=== PATIENT | male | born 1975 | race Caucasian/White ===

== ENCOUNTER 2019-01-07 20:27 | Inpatient (IN) ==
[2019-01-07] MEDS ORDERED: Naloxone Inj 2 MG/2 ML Vial ONE (20:53)
[2019-01-07] MEDS ORDERED: Sod Chloride 0.9% Inj 1,000 ML IV.SIG ONE (20:57)
[2019-01-07 21:25] LABS: Baso # (Auto) 0.1 th/mm3 (0.0-0.2); Baso % (Auto) 0.4 % (0.0-2.0); Eos # (Auto) 0.1 th/mm3 (0.0-0.4); Hematocrit 46.4 % (39.0-51.0); Hemoglobin 15.6 gm/dL (13.0-17.0); Lymph # (Auto) 1.9 th/mm3 (1.0-4.8); Lymph % (Auto) 15.1 % (9.0-44.0); Mean Corpuscular HGB Conc 33.6 % (32.0-36.0); Mean Corpuscular Hemoglobin 30.1 pg (27.0-34.0); Mean Corpuscular Volume 89.6 fL (80.0-100.0); Mean Platelet Volume 8.8 fL (7.0-11.0); Mono # (Auto) 0.5 th/mm3 (0.0-0.9); Mono % (Auto) 3.9 % (0.0-8.0); Neut # (Auto) 10.2 th/mm3 (1.8-7.7); Neut % (Auto) 79.6 % (16.0-70.0); Platelet Count 274 th/mm3 (150-450); Red Blood Count 5.18 mil/mm3 (4.50-5.90); Red Cell Distribution Width 14.8 % (11.6-17.2); White Blood Count 12.8 th/mm3 (4.0-11.0)
[2019-01-07 21:34] LABS: Prothrombin Time 9.8 sec (9.8-11.6)
[2019-01-07 21:36] LABS: Amphetamine Screen,Urine Neg (Neg); Barbiturate Screen,Urine Neg (Neg); Cannabinoid Screen,Urine Neg (Neg); Cocaine Screen,Urine Neg (Neg)
[2019-01-07 21:37] LABS: Bacteria,Urine Few /hpf; Bilirubin,Urine Negative (Negative); Clarity,Urine Clear (Clear); Color,Urine Straw (Yellw/Straw); Glucose,Urine (UA) 500 or Greater mg/dL (Negative); Leukocyte Esterase,Urine Negative (Negative); Nitrite,Urine Negative (Negative); Squamous Epithelial Cell,Urine <1 /hpf (0-5)
--- NOTE | 2019-01-07 21:37 | XR ---
EXAM DATE: 01/07/2019 9:30 PM EST AGE/SEX: 43 years / Male INDICATIONS: Cough, found unresponsive. CLINICAL DATA: This is the patient's initial encounter. Patient reports that signs and symptoms have been present for 1 day and indicates a pain score of Nonresponsive. MEDICAL/SURGICAL HISTORY: Non-responsive. Non-responsive. COMPARISON: No prior exams available for comparison. FINDINGS: Single AP view of the chest. The lungs are clear. Cardiomediastinal silhouette within norm al limits. No evidence of pleural effusion or pneumothorax. CONCLUSION: No acute cardiopulmonary disease identified. Electronically signed by: Luis Weinberg MD Board Certified Radiologist 01/07/2019 9:36 PM EST
[2019-01-07 21:44] LABS: Opiate Screen,Urine Neg (Neg)
--- NOTE | 2019-01-07 21:45 | ED ---
HPI General Chief Complaint: Altered Mental Status Stated Complaint: Confusion Time Seen by Provider: 01/07/19 20:50 Source: patient, family and EMS Mode of arrival: EMS Limitations: no limitations History of Present Illness HPI narrative: 43 year old male presents to ED by EVAC for altered mental status. Per EVAC, pt was alert upon their arrival but began to deteriorate en route. EVAC states that the patient was walking and stumbling into the [place] and urinating on himself, which is not normal for him. Upon arrival pt was difficult to arouse and required several sternal rubs. He was severely altered, with slurred speech and unable to answer questions appropriately. Family states that he has a history of schizophrenia and diabetes. Blood sugar was in 400s. Family states that he has episodes of psychosis but this is not his normal presentation of schizophrenia symptoms. Family states that the patient manages his own medications and as far as they know, he has been taking his medications. Related Data Home Medications Medication Instructions Recorded Confirmed haloperidol decanoate 150 mg IM Q4W 01/08/19 01/08/19 hydroxyzine pamoate 50 mg PO HS 01/08/19 01/08/19 mirtazapine 30 mg PO HS 01/08/19 01/08/19 perphenazine 4 mg PO DAILY 01/08/19 01/08/19 perphenazine 8 mg PO HS 01/08/19 01/08/19 Allergies Allergy/AdvReac Type Severity Reaction Status Date / Time iodine Allergy Severe RASH Unverified 07/11/17 19:24 lidocaine Allergy Severe UNKNOWN Unverified 07/11/17 19:24 penicillin G Allergy Severe Unverified 07/11/17 19:24 prednisone Allergy Severe UNKNOWN Unverified 07/11/17 19:24 sodium iodide Allergy Severe RASH Unverified 07/11/17 19:24 sodium iodide Allergy Severe RASH Unverified 07/11/17 19:24 Review of Systems ROS: all other systems reviewed are negative [facility] Social History Social History Second Hand Smoke Exposure: No Smoking Status: Never smoker How Often Do You Have a Drink Containing Alcohol: Never Recent Travel in [facility] within the Last 8 Weeks: No Recent Out of Country Travel within the Last 8 Weeks: No Immunization History Tetanus Immunization: <5 Years Exam Narrative Exam Narrative: GENERAL: Altered. SKIN: Focused skin assessment warm/dry. HEAD: Atraumatic. Normocephalic. EYES: Pupils equal and round. No scleral icterus. No injection or drainage. ENT: No nasal bleeding or discharge. Mucous membranes pink and moist. Tongue is midline. No uvula deviation. NECK: Trachea midline. No JVD. CARDIOVASCULAR: Regular rate and rhythm. No murmur appreciated. RESPIRATORY: No accessory muscle use. Clear to auscultation. Breath sounds equal bilaterally. GASTROINTESTINAL: Abdomen soft, non-tender, nondistended. Hepatic and splenic margins not palpable. MUSCULOSKELETAL: No obvious deformities. No clubbing. No cyanosis. No edema. Full range of motion of the upper and lower extremities bilaterally. 2+ pulses bilaterally. NEUROLOGICAL: Awake and alert. No obvious cranial nerve deficits. Motor grossly within normal limits. Normal speech. PSYCHIATRIC: Altered mood and affect; insight and judgment not present at this time. Course Initial Documented Vital Signs Temperature 97.9 F 01/07/19 21:15 Pulse Rate 91 H 01/07/19 21:15 Respiratory Rate 16 01/07/19 21:15 Blood Pressure 165/85 H 01/07/19 21:15 Pulse Oximetry 98 01/07/19 21:15 Last Documented Vital Signs Temperature 98.7 F 01/09/19 16:00 Pulse Rate 101 H 01/09/19 18:00 Respiratory Rate 16 01/09/19 16:00 Blood Pressure 131/82 01/09/19 16:00 Pulse Oximetry 96 01/09/19 16:00 Medical Decision Making DALE Attestation DALE supervised visit: Yes Attestation: I, Dr. Ibarra, have reviewed the advance practice practitioner's documentation and am in agreement, met with the patient face to face, made the diagnosis, and the medical decision making was done by me. *My assessment and Findings: Psychosis vs. drug use vs. DKA vs. ICH vs. electrolyte abnormality Pt has a psych history and was given narcan by EVAC which did not really help. He woke up with deep sternal rub by me. Labs reviewed, mild leukocytosis. H/H normal. Glucose elevated. Normal CO2. Normal anion gap. CXR negative. CT brain negative. Pt will be admitted for AMS. MDM Narrative Medical decision making narrative: 43-year-old male that presents to the ED for evaluation of altered mental status. Patient was properly examined and was found to have signs and symptoms consistent appears to be altered mental status. Labs and imaging were ordered. Labs and imaging showed no obvious sign of acute disease. Patient is hyperglycemic but otherwise unremarkable. Unclear as to the etiology of the patient's symptoms. No history of this in the past per family and it is unclear as to what is causing the symptoms. There is a potential for this to be psychiatric in nature but cannot completely rule out medical cause. At this time recommendations for admission. My attending Dr. Ibarra herself evaluated the patient and agrees with this plan. Case discussed with Dr Granda who agrees with plan. Medical Screen Exam Complete: Yes Emergency Medical Condition: Yes Differential Diagnosis Differential Diagnosis: Altered mental status versus overdose versus sepsis versus electrolyte normality versus CVA versus ACS Medical Records Medical records reviewed: Yes I reviewed the patient's medical records. Lab Data Lab results reviewed: Yes I reviewed the patient's lab results. Result diagrams: 01/09/19 06:11 01/09/19 06:11 Lab Results 01/07/19 01/07/19 01/07/19 Range/Units 20:53 21:07 21:07 WBC (4.0-11.0) th/mm3 RBC (4.50-5.90) mil/mm3 Hgb (13.0-17.0) gm/dL Hct (39.0-51.0) % MCV (80.0-100.0) fL MCH (27.0-34.0) pg MCHC (32.0-36.0) % RDW (11.6-17.2) % Plt Count (150-450) th/mm3 MPV (7.0-11.0) fL Neut % (Auto) (16.0-70.0) % Lymph % (Auto) (9.0-44.0) % [place] % (Auto) (0.0-8.0) % Eos % (Auto) (0.0-4.0) % Baso % (Auto) (0.0-2.0) % Neut # (Auto) (1.8-7.7) th/mm3 Lymph # (Auto) (1.0-4.8) th/mm3 [place] # (Auto) (0.0-0.9) th/mm3 Eos # (Auto) (0.0-0.4) th/mm3 Baso # (Auto) (0.0-0.2) th/mm3 WBC Differential Differential Comment PT (9.8-11.6) sec INR Ratio Puncture Site Patient Temperature VBG pH (7.360-7.400) VBG pCO2 (44-48) mmHG VBG pO2 (35-40) mmHG VBG HCO3 (22-26) mmol/L VBG O2 Saturation (70-76) % VBG O2 Content (9.0-17.0) Vol % VBG Base Excess (-2-2) mmol/L VBG Carboxyhemoglobin (0-4) % VBG Methemoglobin (0-2) % Hemoglobin (12.0-16.0) G/DL O2 Delivery Device Inspired O2 % Critical Value Sodium (136-145) meq/L Potassium (3.5-5.1) meq/L Chloride (98-107) meq/L Carbon Dioxide (21.0-32.0) meq/L Anion Gap (5-15) meq/L BUN (7-18) mg/dL Creatinine (0.60-1.30) mg/dL Estimated GFR (>89) mL/min POC Glucose 391 H (68-110) mg/dl Random Glucose (74-106) mg/dL Lactic Acid (0.4-2.0) mmol/L Calcium (8.5-10.1) mg/dL Magnesium (1.5-2.5) mg/dL Total Bilirubin (0.2-1.0) mg/dL AST (15-37) U/L ALT (12-78) U/L Alkaline Phosphatase (45-117) U/L Ammonia (11-32) mcmol/L Total Creatine Kinase (39-308) U/L Troponin I (0.02-0.05) ng/mL B-Natriuretic Peptide (0-100) pg/mL Total Protein (6.4-8.2) g/dL Albumin (3.4-5.0) g/dL TSH (0.358-3.740) uIU/mL Urine Color Straw (Yellw/Straw) Urine Clarity Clear (Clear) Urine pH 6.0 (5.0-8.5) Ur Specific [place] 1.010 (1.002-1.035) Urine Protein Negative (Neg-Trace) mg/dL Urine Glucose (UA) 500 or greater (Negative) mg/dL Urine Ketones Negative (Negative) mg/dL Urine Occult Blood Negative (Negative) Urine Nitrate Negative (Negative) Urine Bilirubin Negative (Negative) Urine Urobilinogen Less than 2 (Less than 2) mg/dL Ur Leukocyte Esterase Negative (Negative) Urine WBC 1 (0-5) /hpf Ur Squamous Epith Cells <1 (0-5) /hpf Urine Bacteria Few H (None) /hpf Micro UA Comment Culture not ind Ur Microscopic Review Not Reportable Urine Culture Comments Culture not ind Salicylates (2.8-20.0) mg/dL Urine Opiates Screen Neg (Neg) Acetaminophen (10.0-30.0) mcg/mL Ur Barbiturates Screen Neg (Neg) Ur Amphetamine Screen (Neg) Ur Amphetamines Screen Neg (Neg) U Benzodiazepines Scrn Neg (Neg) Urine Cocaine Screen Neg (Neg) U Cannabinoids Screen Neg (Neg) Serum Alcohol (0-5) mg/dL 01/07/19 01/07/19 01/07/19 Range/Units 21:10 21:10 21:10 WBC 12.8 H (4.0-11.0) th/mm3 RBC 5.18 (4.50-5.90) mil/mm3 Hgb 15.6 (13.0-17.0) gm/dL Hct 46.4 (39.0-51.0) % MCV 89.6 (80.0-100.0) fL MCH 30.1 (27.0-34.0) pg MCHC 33.6 (32.0-36.0) % RDW 14.8 (11.6-17.2) % Plt Count 274 (150-450) th/mm3 MPV 8.8 (7.0-11.0) fL Neut % (Auto) 79.6 H (16.0-70.0) % Lymph % (Auto) 15.1 (9.0-44.0) % [place] % (Auto) 3.9 (0.0-8.0) % Eos % (Auto) 1.0 (0.0-4.0) % Baso % (Auto) 0.4 (0.0-2.0) % Neut # (Auto) 10.2 H (1.8-7.7) th/mm3 Lymph # (Auto) 1.9 (1.0-4.8) th/mm3 [place] # (Auto) 0.5 (0.0-0.9) th/mm3 Eos # (Auto) 0.1 (0.0-0.4) th/mm3 Baso # (Auto) 0.1 (0.0-0.2) th/mm3 WBC Differential . Differential Comment Auto diff final PT 9.8 (9.8-11.6) sec INR 1.0 Ratio Puncture Site Patient Temperature VBG pH (7.360-7.400) VBG pCO2 (44-48) mmHG VBG pO2 (35-40) mmHG VBG HCO3 (22-26) mmol/L VBG O2 Saturation (70-76) % VBG O2 Content (9.0-17.0) Vol % VBG Base Excess (-2-2) mmol/L VBG Carboxyhemoglobin (0-4) % VBG Methemoglobin (0-2) % Hemoglobin (12.0-16.0) G/DL O2 Delivery Device Inspired O2 % Critical Value Sodium 139 (136-145) meq/L Potassium 4.9 (3.5-5.1) meq/L Chloride 108 H (98-107) meq/L Carbon Dioxide 25.0 (21.0-32.0) meq/L Anion Gap 6 (5-15) meq/L BUN 10 (7-18) mg/dL Creatinine 1.06 (0.60-1.30) mg/dL Estimated GFR 76 L (>89) mL/min POC Glucose (68-110) mg/dl Random Glucose 427 H (74-106) mg/dL Lactic Acid (0.4-2.0) mmol/L Calcium 8.3 L (8.5-10.1) mg/dL Magnesium 2.1 (1.5-2.5) mg/dL Total Bilirubin 0.3 (0.2-1.0) mg/dL AST 11 L (15-37) U/L ALT 22 (12-78) U/L Alkaline Phosphatase 131 H (45-117) U/L Ammonia (11-32) mcmol/L Total Creatine Kinase 75 (39-308) U/L Troponin I Less than 0.02 L (0.02-0.05) ng/mL B-Natriuretic Peptide (0-100) pg/mL Total Protein 7.1 (6.4-8.2) g/dL Albumin 3.5 (3.4-5.0) g/dL TSH 0.427 (0.358-3.740) uIU/mL Urine Color (Yellw/Straw) Urine Clarity (Clear) Urine pH (5.0-8.5) Ur Specific [place] (1.002-1.035) Urine Protein (Neg-Trace) mg/dL Urine Glucose (UA) (Negative) mg/dL Urine Ketones (Negative) mg/dL Urine Occult Blood (Negative) Urine Nitrate (Negative) Urine Bilirubin (Negative) Urine Urobilinogen (Less than 2) mg/dL Ur Leukocyte Esterase (Negative) Urine WBC (0-5) /hpf Ur Squamous Epith Cells (0-5) /hpf Urine Bacteria (None) /hpf Micro UA Comment Ur Microscopic Review Urine Culture Comments Salicylates (2.8-20.0) mg/dL Urine Opiates Screen (Neg) Acetaminophen Less than 2.0 L (10.0-30.0) mcg/mL Ur Barbiturates Screen (Neg) Ur Amphetamine Screen (Neg) Ur Amphetamines Screen (Neg) U Benzodiazepines Scrn (Neg) Urine Cocaine Screen (Neg) U Cannabinoids Screen (Neg) Serum Alcohol Less than 3 (0-5) mg/dL 01/07/19 01/07/19 01/07/19 Range/Units 21:10 21:10 21:10 WBC (4.0-11.0) th/mm3 RBC (4.50-5.90) mil/mm3 Hgb (13.0-17.0) gm/dL Hct (39.0-51.0) % MCV (80.0-100.0) fL MCH (27.0-34.0) pg MCHC (32.0-36.0) % RDW (11.6-17.2) % Plt Count (150-450) th/mm3 MPV (7.0-11.0) fL Neut % (Auto) (16.0-70.0) % Lymph % (Auto) (9.0-44.0) % [place] % (Auto) (0.0-8.0) % Eos % (Auto) (0.0-4.0) % Baso % (Auto) (0.0-2.0) % Neut # (Auto) (1.8-7.7) th/mm3 Lymph # (Auto) (1.0-4.8) th/mm3 [place] # (Auto) (0.0-0.9) th/mm3 Eos # (Auto) (0.0-0.4) th/mm3 Baso # (Auto) (0.0-0.2) th/mm3 WBC Differential Differential Comment PT (9.8-11.6) sec INR Ratio Puncture Site Patient Temperature VBG pH (7.360-7.400) VBG pCO2 (44-48) mmHG VBG pO2 (35-40) mmHG VBG HCO3 (22-26) mmol/L VBG O2 Saturation (70-76) % VBG O2 Content (9.0-17.0) Vol % VBG Base Excess (-2-2) mmol/L VBG Carboxyhemoglobin (0-4) % VBG Methemoglobin (0-2) % Hemoglobin (12.0-16.0) G/DL O2 Delivery Device Inspired O2 % Critical Value Sodium (136-145) meq/L Potassium (3.5-5.1) meq/L Chloride (98-107) meq/L Carbon Dioxide (21.0-32.0) meq/L Anion Gap (5-15) meq/L BUN (7-18) mg/dL Creatinine (0.60-1.30) mg/dL Estimated GFR (>89) mL/min POC Glucose (68-110) mg/dl Random Glucose (74-106) mg/dL Lactic Acid 1.1 (0.4-2.0) mmol/L Calcium (8.5-10.1) mg/dL Magnesium (1.5-2.5) mg/dL Total Bilirubin (0.2-1.0) mg/dL AST (15-37) U/L ALT (12-78) U/L Alkaline Phosphatase (45-117) U/L Ammonia (11-32) mcmol/L Total Creatine Kinase (39-308) U/L Troponin I (0.02-0.05) ng/mL B-Natriuretic Peptide 5 (0-100) pg/mL Total Protein (6.4-8.2) g/dL Albumin (3.4-5.0) g/dL TSH (0.358-3.740) uIU/mL Urine Color (Yellw/Straw) Urine Clarity (Clear) Urine pH (5.0-8.5) Ur Specific [place] (1.002-1.035) Urine Protein (Neg-Trace) mg/dL Urine Glucose (UA) (Negative) mg/dL Urine Ketones (Negative) mg/dL Urine Occult Blood (Negative) Urine Nitrate (Negative) Urine Bilirubin (Negative) Urine Urobilinogen (Less than 2) mg/dL Ur Leukocyte Esterase (Negative) Urine WBC (0-5) /hpf Ur Squamous Epith Cells (0-5) /hpf Urine Bacteria (None) /hpf Micro UA Comment Ur Microscopic Review Urine Culture Comments Salicylates 4.3 (2.8-20.0) mg/dL Urine Opiates Screen (Neg) Acetaminophen (10.0-30.0) mcg/mL Ur Barbiturates Screen (Neg) Ur Amphetamine Screen (Neg) Ur Amphetamines Screen (Neg) U Benzodiazepines Scrn (Neg) Urine Cocaine Screen (Neg) U Cannabinoids Screen (Neg) Serum Alcohol (0-5) mg/dL 01/07/19 01/07/19 01/07/19 Range/Units 21:10 22:05 23:15 WBC (4.0-11.0) th/mm3 RBC (4.50-5.90) mil/mm3 Hgb (13.0-17.0) gm/dL Hct (39.0-51.0) % MCV (80.0-100.0) fL MCH (27.0-34.0) pg MCHC (32.0-36.0) % RDW (11.6-17.2) % Plt Count (150-450) th/mm3 MPV (7.0-11.0) fL Neut % (Auto) (16.0-70.0) % Lymph % (Auto) (9.0-44.0) % [place] % (Auto) (0.0-8.0) % Eos % (Auto) (0.0-4.0) % Baso % (Auto) (0.0-2.0) % Neut # (Auto) (1.8-7.7) th/mm3 Lymph # (Auto) (1.0-4.8) th/mm3 [place] # (Auto) (0.0-0.9) th/mm3 Eos # (Auto) (0.0-0.4) th/mm3 Baso # (Auto) (0.0-0.2) th/mm3 WBC Differential Differential Comment PT (9.8-11.6) sec INR Ratio Puncture Site Line Patient Temperature 98.6 VBG pH 7.33 L (7.360-7.400) VBG pCO2 45 (44-48) mmHG VBG pO2 30 L (35-40) mmHG VBG HCO3 23 (22-26) mmol/L VBG O2 Saturation 54 L (70-76) % VBG O2 Content 11.2 (9.0-17.0) Vol % VBG Base Excess -2.3 L (-2-2) mmol/L VBG Carboxyhemoglobin 8.7 H* (0-4) % VBG Methemoglobin 0.8 (0-2) % Hemoglobin 14.9 (12.0-16.0) G/DL O2 Delivery Device Room air Inspired O2 21 % Critical Value Yes Sodium (136-145) meq/L Potassium (3.5-5.1) meq/L Chloride (98-107) meq/L Carbon Dioxide (21.0-32.0) meq/L Anion Gap (5-15) meq/L BUN (7-18) mg/dL Creatinine (0.60-1.30) mg/dL Estimated GFR (>89) mL/min POC Glucose (68-110) mg/dl Random Glucose (74-106) mg/dL Lactic Acid 1.3 (0.4-2.0) mmol/L Calcium (8.5-10.1) mg/dL Magnesium (1.5-2.5) mg/dL Total Bilirubin (0.2-1.0) mg/dL AST (15-37) U/L ALT (12-78) U/L Alkaline Phosphatase (45-117) U/L Ammonia 30 (11-32) mcmol/L Total Creatine Kinase (39-308) U/L Troponin I (0.02-0.05) ng/mL B-Natriuretic Peptide (0-100) pg/mL Total Protein (6.4-8.2) g/dL Albumin (3.4-5.0) g/dL TSH (0.358-3.740) uIU/mL Urine Color (Yellw/Straw) Urine Clarity (Clear) Urine pH (5.0-8.5) Ur Specific [place] (1.002-1.035) Urine Protein (Neg-Trace) mg/dL Urine Glucose (UA) (Negative) mg/dL Urine Ketones (Negative) mg/dL Urine Occult Blood (Negative) Urine Nitrate (Negative) Urine Bilirubin (Negative) Urine Urobilinogen (Less than 2) mg/dL Ur Leukocyte Esterase (Negative) Urine WBC (0-5) /hpf Ur Squamous Epith Cells (0-5) /hpf Urine Bacteria (None) /hpf Micro UA Comment Ur Microscopic Review Urine Culture Comments Salicylates (2.8-20.0) mg/dL Urine Opiates Screen (Neg) Acetaminophen (10.0-30.0) mcg/mL Ur Barbiturates Screen (Neg) Ur Amphetamine Screen (Neg) Ur Amphetamines Screen (Neg) U Benzodiazepines Scrn (Neg) Urine Cocaine Screen (Neg) U Cannabinoids Screen (Neg) Serum Alcohol (0-5) mg/dL 01/08/19 01/08/19 01/08/19 Range/Units 00:20 01:45 03:17 WBC (4.0-11.0) th/mm3 RBC (4.50-5.90) mil/mm3 Hgb (13.0-17.0) gm/dL Hct (39.0-51.0) % MCV (80.0-100.0) fL MCH (27.0-34.0) pg MCHC (32.0-36.0) % RDW (11.6-17.2) % Plt Count (150-450) th/mm3 MPV (7.0-11.0) fL Neut % (Auto) (16.0-70.0) % Lymph % (Auto) (9.0-44.0) % [place] % (Auto) (0.0-8.0) % Eos % (Auto) (0.0-4.0) % Baso % (Auto) (0.0-2.0) % Neut # (Auto) (1.8-7.7) th/mm3 Lymph # (Auto) (1.0-4.8) th/mm3 [place] # (Auto) (0.0-0.9) th/mm3 Eos # (Auto) (0.0-0.4) th/mm3 Baso # (Auto) (0.0-0.2) th/mm3 WBC Differential Differential Comment PT (9.8-11.6) sec INR Ratio Puncture Site Patient Temperature VBG pH (7.360-7.400) VBG pCO2 (44-48) mmHG VBG pO2 (35-40) mmHG VBG HCO3 (22-26) mmol/L VBG O2 Saturation (70-76) % VBG O2 Content (9.0-17.0) Vol % VBG Base Excess (-2-2) mmol/L VBG Carboxyhemoglobin (0-4) % VBG Methemoglobin (0-2) % Hemoglobin (12.0-16.0) G/DL O2 Delivery Device Inspired O2 % Critical Value Sodium (136-145) meq/L Potassium (3.5-5.1) meq/L Chloride (98-107) meq/L Carbon Dioxide (21.0-32.0) meq/L Anion Gap (5-15) meq/L BUN (7-18) mg/dL Creatinine (0.60-1.30) mg/dL Estimated GFR (>89) mL/min POC Glucose 436 H 402 H (68-110) mg/dl Random Glucose (74-106) mg/dL Lactic Acid (0.4-2.0) mmol/L Calcium (8.5-10.1) mg/dL Magnesium (1.5-2.5) mg/dL Total Bilirubin (0.2-1.0) mg/dL AST (15-37) U/L ALT (12-78) U/L Alkaline Phosphatase (45-117) U/L Ammonia (11-32) mcmol/L Total Creatine Kinase (39-308) U/L Troponin I (0.02-0.05) ng/mL B-Natriuretic Peptide (0-100) pg/mL Total Protein (6.4-8.2) g/dL Albumin (3.4-5.0) g/dL TSH (0.358-3.740) uIU/mL Urine Color (Yellw/Straw) Urine Clarity (Clear) Urine pH (5.0-8.5) Ur Specific [place] (1.002-1.035) Urine Protein (Neg-Trace) mg/dL Urine Glucose (UA) (Negative) mg/dL Urine Ketones (Negative) mg/dL Urine Occult Blood (Negative) Urine Nitrate (Negative) Urine Bilirubin (Negative) Urine Urobilinogen (Less than 2) mg/dL Ur Leukocyte Esterase (Negative) Urine WBC (0-5) /hpf Ur Squamous Epith Cells (0-5) /hpf Urine Bacteria (None) /hpf Micro UA Comment Ur Microscopic Review Urine Culture Comments Salicylates (2.8-20.0) mg/dL Urine Opiates Screen Neg (Neg) Acetaminophen (10.0-30.0) mcg/mL Ur Barbiturates Screen Neg (Neg) Ur Amphetamine Screen Neg (Neg) Ur Amphetamines Screen (Neg) U Benzodiazepines Scrn Neg (Neg) Urine Cocaine Screen Neg (Neg) U Cannabinoids Screen Neg (Neg) Serum Alcohol (0-5) mg/dL 01/08/19 01/08/19 01/08/19 Range/Units 07:30 07:30 08:41 WBC 17.1 H (4.0-11.0) th/mm3 RBC 4.85 (4.50-5.90) mil/mm3 Hgb 14.6 (13.0-17.0) gm/dL Hct 43.4 (39.0-51.0) % MCV 89.5 (80.0-100.0) fL MCH 30.0 (27.0-34.0) pg MCHC 33.6 (32.0-36.0) % RDW 14.8 (11.6-17.2) % Plt Count 286 (150-450) th/mm3 MPV 9.3 (7.0-11.0) fL Neut % (Auto) 78.4 H (16.0-70.0) % Lymph % (Auto) 14.6 (9.0-44.0) % [place] % (Auto) 6.1 (0.0-8.0) % Eos % (Auto) 0.4 (0.0-4.0) % Baso % (Auto) 0.5 (0.0-2.0) % Neut # (Auto) 13.4 H (1.8-7.7) th/mm3 Lymph # (Auto) 2.5 (1.0-4.8) th/mm3 [place] # (Auto) 1.0 H (0.0-0.9) th/mm3 Eos # (Auto) 0.1 (0.0-0.4) th/mm3 Baso # (Auto) 0.1 (0.0-0.2) th/mm3 WBC Differential . Differential Comment Auto diff final PT (9.8-11.6) sec INR Ratio Puncture Site Patient Temperature VBG pH (7.360-7.400) VBG pCO2 (44-48) mmHG VBG pO2 (35-40) mmHG VBG HCO3 (22-26) mmol/L VBG O2 Saturation (70-76) % VBG O2 Content (9.0-17.0) Vol % VBG Base Excess (-2-2) mmol/L VBG Carboxyhemoglobin (0-4) % VBG Methemoglobin (0-2) % Hemoglobin (12.0-16.0) G/DL O2 Delivery Device Inspired O2 % Critical Value Sodium 148 H (136-145) meq/L Potassium 3.4 L D (3.5-5.1) meq/L Chloride 119 H D (98-107) meq/L Carbon Dioxide 22.4 (21.0-32.0) meq/L Anion Gap 7 (5-15) meq/L BUN 7 (7-18) mg/dL Creatinine 0.74 (0.60-1.30) mg/dL Estimated GFR Greater than 89 (>89) mL/min POC Glucose 281 H (68-110) mg/dl Random Glucose 224 H D (74-106) mg/dL Lactic Acid (0.4-2.0) mmol/L Calcium 7.5 L D (8.5-10.1) mg/dL Magnesium (1.5-2.5) mg/dL Total Bilirubin 0.4 (0.2-1.0) mg/dL AST 10 L (15-37) U/L ALT 18 (12-78) U/L Alkaline Phosphatase 104 (45-117) U/L Ammonia (11-32) mcmol/L Total Creatine Kinase 90 (39-308) U/L Troponin I Less than 0.02 L (0.02-0.05) ng/mL B-Natriuretic Peptide (0-100) pg/mL Total Protein 6.1 L D (6.4-8.2) g/dL Albumin 2.9 L D (3.4-5.0) g/dL TSH (0.358-3.740) uIU/mL Urine Color (Yellw/Straw) Urine Clarity (Clear) Urine pH (5.0-8.5) Ur Specific [place] (1.002-1.035) Urine Protein (Neg-Trace) mg/dL Urine Glucose (UA) (Negative) mg/dL Urine Ketones (Negative) mg/dL Urine Occult Blood (Negative) Urine Nitrate (Negative) Urine Bilirubin (Negative) Urine Urobilinogen (Less than 2) mg/dL Ur Leukocyte Esterase (Negative) Urine WBC (0-5) /hpf Ur Squamous Epith Cells (0-5) /hpf Urine Bacteria (None) /hpf Micro UA Comment Ur Microscopic Review Urine Culture Comments Salicylates (2.8-20.0) mg/dL Urine Opiates Screen (Neg) Acetaminophen (10.0-30.0) mcg/mL Ur Barbiturates Screen (Neg) Ur Amphetamine Screen (Neg) Ur Amphetamines Screen (Neg) U Benzodiazepines Scrn (Neg) Urine Cocaine Screen (Neg) U Cannabinoids Screen (Neg) Serum Alcohol (0-5) mg/dL 01/08/19 01/08/19 01/08/19 Range/Units 11:15 11:25 16:34 WBC (4.0-11.0) th/mm3 RBC (4.50-5.90) mil/mm3 Hgb (13.0-17.0) gm/dL Hct (39.0-51.0) % MCV (80.0-100.0) fL MCH (27.0-34.0) pg MCHC (32.0-36.0) % RDW (11.6-17.2) % Plt Count (150-450) th/mm3 MPV (7.0-11.0) fL Neut % (Auto) (16.0-70.0) % Lymph % (Auto) (9.0-44.0) % [place] % (Auto) (0.0-8.0) % Eos % (Auto) (0.0-4.0) % Baso % (Auto) (0.0-2.0) % Neut # (Auto) (1.8-7.7) th/mm3 Lymph # (Auto) (1.0-4.8) th/mm3 [place] # (Auto) (0.0-0.9) th/mm3 Eos # (Auto) (0.0-0.4) th/mm3 Baso # (Auto) (0.0-0.2) th/mm3 WBC Differential Differential Comment PT (9.8-11.6) sec INR Ratio Puncture Site Patient Temperature VBG pH (7.360-7.400) VBG pCO2 (44-48) mmHG VBG pO2 (35-40) mmHG VBG HCO3 (22-26) mmol/L VBG O2 Saturation (70-76) % VBG O2 Content (9.0-17.0) Vol % VBG Base Excess (-2-2) mmol/L VBG Carboxyhemoglobin (0-4) % VBG Methemoglobin (0-2) % Hemoglobin (12.0-16.0) G/DL O2 Delivery Device Inspired O2 % Critical Value Sodium (136-145) meq/L Potassium (3.5-5.1) meq/L Chloride (98-107) meq/L Carbon Dioxide (21.0-32.0) meq/L Anion Gap (5-15) meq/L BUN (7-18) mg/dL Creatinine (0.60-1.30) mg/dL Estimated GFR (>89) mL/min POC Glucose 132 H 284 H 228 H (68-110) mg/dl Random Glucose (74-106) mg/dL Lactic Acid (0.4-2.0) mmol/L Calcium (8.5-10.1) mg/dL Magnesium (1.5-2.5) mg/dL Total Bilirubin (0.2-1.0) mg/dL AST (15-37) U/L ALT (12-78) U/L Alkaline Phosphatase (45-117) U/L Ammonia (11-32) mcmol/L Total Creatine Kinase (39-308) U/L Troponin I (0.02-0.05) ng/mL B-Natriuretic Peptide (0-100) pg/mL Total Protein (6.4-8.2) g/dL Albumin (3.4-5.0) g/dL TSH (0.358-3.740) uIU/mL Urine Color (Yellw/Straw) Urine Clarity (Clear) Urine pH (5.0-8.5) Ur Specific [place] (1.002-1.035) Urine Protein (Neg-Trace) mg/dL Urine Glucose (UA) (Negative) mg/dL Urine Ketones (Negative) mg/dL Urine Occult Blood (Negative) Urine Nitrate (Negative) Urine Bilirubin (Negative) Urine Urobilinogen (Less than 2) mg/dL Ur Leukocyte Esterase (Negative) Urine WBC (0-5) /hpf Ur Squamous Epith Cells (0-5) /hpf Urine Bacteria (None) /hpf Micro UA Comment Ur Microscopic Review Urine Culture Comments Salicylates (2.8-20.0) mg/dL Urine Opiates Screen (Neg) Acetaminophen (10.0-30.0) mcg/mL Ur Barbiturates Screen (Neg) Ur Amphetamine Screen (Neg) Ur Amphetamines Screen (Neg) U Benzodiazepines Scrn (Neg) Urine Cocaine Screen (Neg) U Cannabinoids Screen (Neg) Serum Alcohol (0-5) mg/dL 01/08/19 01/09/19 01/09/19 Range/Units 21:02 04:19 06:11 WBC 12.3 H (4.0-11.0) th/mm3 RBC 5.16 (4.50-5.90) mil/mm3 Hgb 15.7 (13.0-17.0) gm/dL Hct 46.1 (39.0-51.0) % MCV 89.3 (80.0-100.0) fL MCH 30.4 (27.0-34.0) pg MCHC 34.0 (32.0-36.0) % RDW 14.6 (11.6-17.2) % Plt Count 250 (150-450) th/mm3 MPV 8.8 (7.0-11.0) fL Neut % (Auto) 67.8 (16.0-70.0) % Lymph % (Auto) 23.7 (9.0-44.0) % [place] % (Auto) 6.5 (0.0-8.0) % Eos % (Auto) 1.4 (0.0-4.0) % Baso % (Auto) 0.6 (0.0-2.0) % Neut # (Auto) 8.3 H (1.8-7.7) th/mm3 Lymph # (Auto) 2.9 (1.0-4.8) th/mm3 [place] # (Auto) 0.8 (0.0-0.9) th/mm3 Eos # (Auto) 0.2 (0.0-0.4) th/mm3 Baso # (Auto) 0.1 (0.0-0.2) th/mm3 WBC Differential . Differential Comment Auto diff final PT (9.8-11.6) sec INR Ratio Puncture Site Patient Temperature VBG pH (7.360-7.400) VBG pCO2 (44-48) mmHG VBG pO2 (35-40) mmHG VBG HCO3 (22-26) mmol/L VBG O2 Saturation (70-76) % VBG O2 Content (9.0-17.0) Vol % VBG Base Excess (-2-2) mmol/L VBG Carboxyhemoglobin (0-4) % VBG Methemoglobin (0-2) % Hemoglobin (12.0-16.0) G/DL O2 Delivery Device Inspired O2 % Critical Value Sodium (136-145) meq/L Potassium (3.5-5.1) meq/L Chloride (98-107) meq/L Carbon Dioxide (21.0-32.0) meq/L Anion Gap (5-15) meq/L BUN (7-18) mg/dL Creatinine (0.60-1.30) mg/dL Estimated GFR (>89) mL/min POC Glucose 215 H 212 H (68-110) mg/dl Random Glucose (74-106) mg/dL Lactic Acid (0.4-2.0) mmol/L Calcium (8.5-10.1) mg/dL Magnesium (1.5-2.5) mg/dL Total Bilirubin (0.2-1.0) mg/dL AST (15-37) U/L ALT (12-78) U/L Alkaline Phosphatase (45-117) U/L Ammonia (11-32) mcmol/L Total Creatine Kinase (39-308) U/L Troponin I (0.02-0.05) ng/mL B-Natriuretic Peptide (0-100) pg/mL Total Protein (6.4-8.2) g/dL Albumin (3.4-5.0) g/dL TSH (0.358-3.740) uIU/mL Urine Color (Yellw/Straw) Urine Clarity (Clear) Urine pH (5.0-8.5) Ur Specific [place] (1.002-1.035) Urine Protein (Neg-Trace) mg/dL Urine Glucose (UA) (Negative) mg/dL Urine Ketones (Negative) mg/dL Urine Occult Blood (Negative) Urine Nitrate (Negative) Urine Bilirubin (Negative) Urine Urobilinogen (Less than 2) mg/dL Ur Leukocyte Esterase (Negative) Urine WBC (0-5) /hpf Ur Squamous Epith Cells (0-5) /hpf Urine Bacteria (None) /hpf Micro UA Comment Ur Microscopic Review Urine Culture Comments Salicylates (2.8-20.0) mg/dL Urine Opiates Screen (Neg) Acetaminophen (10.0-30.0) mcg/mL Ur Barbiturates Screen (Neg) Ur Amphetamine Screen (Neg) Ur Amphetamines Screen (Neg) U Benzodiazepines Scrn (Neg) Urine Cocaine Screen (Neg) U Cannabinoids Screen (Neg) Serum Alcohol (0-5) mg/dL 01/09/19 01/09/19 01/09/19 Range/Units 06:11 07:45 11:31 WBC (4.0-11.0) th/mm3 RBC (4.50-5.90) mil/mm3 Hgb (13.0-17.0) gm/dL Hct (39.0-51.0) % MCV (80.0-100.0) fL MCH (27.0-34.0) pg MCHC (32.0-36.0) % RDW (11.6-17.2) % Plt Count (150-450) th/mm3 MPV (7.0-11.0) fL Neut % (Auto) (16.0-70.0) % Lymph % (Auto) (9.0-44.0) % [place] % (Auto) (0.0-8.0) % Eos % (Auto) (0.0-4.0) % Baso % (Auto) (0.0-2.0) % Neut # (Auto) (1.8-7.7) th/mm3 Lymph # (Auto) (1.0-4.8) th/mm3 [place] # (Auto) (0.0-0.9) th/mm3 Eos # (Auto) (0.0-0.4) th/mm3 Baso # (Auto) (0.0-0.2) th/mm3 WBC Differential Differential Comment PT (9.8-11.6) sec INR Ratio Puncture Site Patient Temperature VBG pH (7.360-7.400) VBG pCO2 (44-48) mmHG VBG pO2 (35-40) mmHG VBG HCO3 (22-26) mmol/L VBG O2 Saturation (70-76) % VBG O2 Content (9.0-17.0) Vol % VBG Base Excess (-2-2) mmol/L VBG Carboxyhemoglobin (0-4) % VBG Methemoglobin (0-2) % Hemoglobin (12.0-16.0) G/DL O2 Delivery Device Inspired O2 % Critical Value Sodium 147 H (136-145) meq/L Potassium 3.3 L (3.5-5.1) meq/L Chloride 117 H (98-107) meq/L Carbon Dioxide 22.6 (21.0-32.0) meq/L Anion Gap 7 (5-15) meq/L BUN 8 (7-18) mg/dL Creatinine 0.74 (0.60-1.30) mg/dL Estimated GFR Greater than 89 (>89) mL/min POC Glucose 217 H 199 H (68-110) mg/dl Random Glucose 228 H (74-106) mg/dL Lactic Acid (0.4-2.0) mmol/L Calcium 8.1 L (8.5-10.1) mg/dL Magnesium (1.5-2.5) mg/dL Total Bilirubin (0.2-1.0) mg/dL AST (15-37) U/L ALT (12-78) U/L Alkaline Phosphatase (45-117) U/L Ammonia (11-32) mcmol/L Total Creatine Kinase 72 (39-308) U/L Troponin I (0.02-0.05) ng/mL B-Natriuretic Peptide (0-100) pg/mL Total Protein (6.4-8.2) g/dL Albumin (3.4-5.0) g/dL TSH (0.358-3.740) uIU/mL Urine Color (Yellw/Straw) Urine Clarity (Clear) Urine pH (5.0-8.5) Ur Specific [place] (1.002-1.035) Urine Protein (Neg-Trace) mg/dL Urine Glucose (UA) (Negative) mg/dL Urine Ketones (Negative) mg/dL Urine Occult Blood (Negative) Urine Nitrate (Negative) Urine Bilirubin (Negative) Urine Urobilinogen (Less than 2) mg/dL Ur Leukocyte Esterase (Negative) Urine WBC (0-5) /hpf Ur Squamous Epith Cells (0-5) /hpf Urine Bacteria (None) /hpf Micro UA Comment Ur Microscopic Review Urine Culture Comments Salicylates (2.8-20.0) mg/dL Urine Opiates Screen (Neg) Acetaminophen (10.0-30.0) mcg/mL Ur Barbiturates Screen (Neg) Ur Amphetamine Screen (Neg) Ur Amphetamines Screen (Neg) U Benzodiazepines Scrn (Neg) Urine Cocaine Screen (Neg) U Cannabinoids Screen (Neg) Serum Alcohol (0-5) mg/dL 01/09/19 Range/Units 16:54 WBC (4.0-11.0) th/mm3 RBC (4.50-5.90) mil/mm3 Hgb (13.0-17.0) gm/dL Hct (39.0-51.0) % MCV (80.0-100.0) fL MCH (27.0-34.0) pg MCHC (32.0-36.0) % RDW (11.6-17.2) % Plt Count (150-450) th/mm3 MPV (7.0-11.0) fL Neut % (Auto) (16.0-70.0) % Lymph % (Auto) (9.0-44.0) % [place] % (Auto) (0.0-8.0) % Eos % (Auto) (0.0-4.0) % Baso % (Auto) (0.0-2.0) % Neut # (Auto) (1.8-7.7) th/mm3 Lymph # (Auto) (1.0-4.8) th/mm3 [place] # (Auto) (0.0-0.9) th/mm3 Eos # (Auto) (0.0-0.4) th/mm3 Baso # (Auto) (0.0-0.2) th/mm3 WBC Differential Differential Comment PT (9.8-11.6) sec INR Ratio Puncture Site Patient Temperature VBG pH (7.360-7.400) VBG pCO2 (44-48) mmHG VBG pO2 (35-40) mmHG VBG HCO3 (22-26) mmol/L VBG O2 Saturation (70-76) % VBG O2 Content (9.0-17.0) Vol % VBG Base Excess (-2-2) mmol/L VBG Carboxyhemoglobin (0-4) % VBG Methemoglobin (0-2) % Hemoglobin (12.0-16.0) G/DL O2 Delivery Device Inspired O2 % Critical Value Sodium (136-145) meq/L Potassium (3.5-5.1) meq/L Chloride (98-107) meq/L Carbon Dioxide (21.0-32.0) meq/L Anion Gap (5-15) meq/L BUN (7-18) mg/dL Creatinine (0.60-1.30) mg/dL Estimated GFR (>89) mL/min POC Glucose 222 H (68-110) mg/dl Random Glucose (74-106) mg/dL Lactic Acid (0.4-2.0) mmol/L Calcium (8.5-10.1) mg/dL Magnesium (1.5-2.5) mg/dL Total Bilirubin (0.2-1.0) mg/dL AST (15-37) U/L ALT (12-78) U/L Alkaline Phosphatase (45-117) U/L Ammonia (11-32) mcmol/L Total Creatine Kinase (39-308) U/L Troponin I (0.02-0.05) ng/mL B-Natriuretic Peptide (0-100) pg/mL Total Protein (6.4-8.2) g/dL Albumin (3.4-5.0) g/dL TSH (0.358-3.740) uIU/mL Urine Color (Yellw/Straw) Urine Clarity (Clear) Urine pH (5.0-8.5) Ur Specific [place] (1.002-1.035) Urine Protein (Neg-Trace) mg/dL Urine Glucose (UA) (Negative) mg/dL Urine Ketones (Negative) mg/dL Urine Occult Blood (Negative) Urine Nitrate (Negative) Urine Bilirubin (Negative) Urine Urobilinogen (Less than 2) mg/dL Ur Leukocyte Esterase (Negative) Urine WBC (0-5) /hpf Ur Squamous Epith Cells (0-5) /hpf Urine Bacteria (None) /hpf Micro UA Comment Ur Microscopic Review Urine Culture Comments Salicylates (2.8-20.0) mg/dL Urine Opiates Screen (Neg) Acetaminophen (10.0-30.0) mcg/mL Ur Barbiturates Screen (Neg) Ur Amphetamine Screen (Neg) Ur Amphetamines Screen (Neg) U Benzodiazepines Scrn (Neg) Urine Cocaine Screen (Neg) U Cannabinoids Screen (Neg) Serum Alcohol (0-5) mg/dL Imaging Data Attestation: I personally reviewed and interpreted this imaging study as follows : Radiologist's impression: Chest X-Ray 01/07/19 20:57 CONCLUSION: No acute cardiopulmonary disease identified. Head CT 01/07/19 20:57 CONCLUSION: 1. Negative CT Head non contrast. . ECG Data Attestation: I personally reviewed and interpreted this ECG as follows: Interpretation: EKG shows sinus rhythm with no sign of acute ischemia and arrhythmia read by me and attending. Discharge Plan Discharge Disposition Patient Disposition: ED Admit(ED Internal Use Only) Discharge Order Discharge Orders: ED Use Only Admit Order (Routine); Ordered 01/07/19 Ordered By: Denny Morales Discharge Details Diagnosis: Altered mental status, Acute hyperglycemia Physicians Team ED Provider: Carmel Ibarra ED Midlevel Provider: Denny Morales Primary Care Provider: UNKNOWN, Attending Provider: Ralph Rae Other Providers: Romeo Walters ; Chepe Hanley ; Elliot Parisi Status ED Status: Left Department Discharge Information Discharge Date/Time: 01/08/19 03:55
[2019-01-07 21:56] LABS: Alanine Aminotransferase 22 U/L (12-78); Albumin 3.5 g/dL (3.4-5.0); Alkaline Phosphatase 131 U/L (45-117); Anion Gap 6 meq/L (5-15); Aspartate Aminotransferase 11 U/L (15-37); Blood Urea Nitrogen 10 mg/dL (7-18); Calcium 8.3 mg/dL (8.5-10.1); Chloride 108 meq/L (98-107); Glomerular Filtration Rate 76 mL/min (>89); Glucose,Random 427 mg/dL (74-106); Magnesium 2.1 mg/dL (1.5-2.5); Potassium 4.9 meq/L (3.5-5.1); Sodium 139 meq/L (136-145); Thyroid Stimulating Hormone 0.427 uIU/mL (0.358-3.740); Total Protein 7.1 g/dL (6.4-8.2)
[2019-01-07 21:57] LABS: Creatine Kinase 75 U/L (39-308)
--- NOTE | 2019-01-07 22:11 | CT ---
EXAM DATE: 01/07/2019 10:02 PM EST AGE/SEX: 43 years / Male INDICATIONS: Altered mental status. CLINICAL DATA: This is the patient's initial encounter. Patient reports that signs and symptoms have been present for 1 day and indicates a pain score of Nonresponsive. MEDICAL/SURGICAL HISTORY: Non-responsive. Non-responsive. RADIATION DOSE: 56.35 CTDI (mGy) COMPARISON: [facility] [place], 04/23/2012. . TECHNIQUE: CT of the head without contrast. Using automated exposure control and adjustment of the mA and/or kV according to patient size, radiation dose was kept as low as reasonably achievable to ob tain optimal diagnostic quality images. DICOM format image data is available electronically for revi ew and comparison. FINDINGS: Cerebrum: The ventricles are normal for age. No evidence of midline shift, mass lesion, hemorrhage or acute infarction. No extraaxial fluid collections are seen. Posterior Fossa: The cerebellum and brainstem are intact. The 4th ventricle is midline. The cerebe llopontine angle is unremarkable. Extracranial: The visualized portion of the orbits is intact. Skull: The calvaria is intact. No evidence of skull fracture. CONCLUSION: 1. Negative CT Head non contrast. . Electronically signed by: Brown Vo MD Board Certified Radiologist 01/07/2019 10:09 PM EST
[2019-01-07 22:21] LABS: VBG Base Excess -2.3 mmol/L (-2-2); VBG Blood Gas Oxygen Content 11.2 Vol % (9.0-17.0); VBG PCO2 45 mmHG (44-48); VBG PH 7.33 (7.360-7.400); VBG PO2 30 mmHG (35-40)
[2019-01-07] MEDS ORDERED: Atropine Inj 1 MG/ML Vial IV.PUSH ONE (22:53)
[2019-01-07] MEDS ORDERED: Bisacodyl 10 MG Supp RECTAL PRN (23:49)
[2019-01-07] MEDS ORDERED: Naloxone Inj 0.4 MG/ML Vial IV.PUSH ONE (23:49)
[2019-01-07] MEDS ORDERED: Dextrose 50% in Water 50 ML Vial IV.PUSH PRN (23:54)
--- NOTE | 2019-01-08 00:06 | P.HPIM ---
History of Present Illness Primary Care Physician: UNKNOWN 43-year-old male with a past medical history significant for schizophrenia, diabetes mellitus, chronic hip fracture and GERD presents to the emergency department for the evaluation of altered mental status. Family is bedside and provides history. Reportedly the patient became altered earlier this afternoon and was acting as as if he was unable to see. He then became unable to ambulate and was "comatose in his chair." He lost bladder continence. He then became unresponsive and did not answer the patient's questions. At the time of our interview, the patient does not respond to sternal rub but will withdraw to pain. Further review of systems is unobtainable given patient's altered mental status. The patient receives an injection monthly for his schizophrenia. He manages all his other medications and the family does not know exactly what he takes. They state he was at home with his father all day and they are not aware of any alcohol use or substance ingestion. Since his arrival to the emergency department, the patient has been bradycardic in the 40s. Review of Systems ROS Unobtainable: unobtainable due to mental status PMFSH Medical History Medical History Diabetes (Acute) GERD (gastroesophageal reflux disease) (Acute) Hip fracture (Acute) Recent surgical procedure on lower extremity (Acute) Schizophrenia (Acute) Urinary retention (Acute) Family History Family History Other Coronary artery disease Diabetes mellitus Social History Social History Second Hand Smoke Exposure: No Smoking Status: Never smoker How Often Do You Have a Drink Containing Alcohol: Never Recent Travel in [facility] within the Last 8 Weeks: No Recent Out of Country Travel within the Last 8 Weeks: No Immunization History Tetanus Immunization: <5 Years Medications and Allergies Allergies Allergy/AdvReac Type Severity Reaction Status Date / Time iodine Allergy Severe RASH Unverified 07/11/17 19:24 lidocaine Allergy Severe UNKNOWN Unverified 07/11/17 19:24 penicillin G Allergy Severe Unverified 07/11/17 19:24 prednisone Allergy Severe UNKNOWN Unverified 07/11/17 19:24 sodium iodide Allergy Severe RASH Unverified 07/11/17 19:24 sodium iodide Allergy Severe RASH Unverified 07/11/17 19:24 Physical Exam Vital signs: Vital Signs 01/07/19 21:15 01/07/19 21:18 01/07/19 21:41 Temperature 97.9 F Pulse Rate 91 H 65 Respiratory Rate 16 16 Blood Pressure 165/85 H 132/85 Pulse Oximetry 98 97 96 01/07/19 22:52 01/07/19 23:43 Temperature Pulse Rate 55 L 48 L Respiratory Rate 16 16 Blood Pressure 104/54 L 125/59 L Pulse Oximetry 98 97 Intake & Output 01/07/19 01/07/19 01/08/19 06:59 18:59 06:59 Intake Total 1000 / 1000 Balance 1000 / 1000 Weight 95 kg Intake: IV 1000 / 1000 NS Inj 1,000 ML @ Wide Open IV. 1000 / 1000 SIG BOLUS ONE Rx#:[id number] Narrative: Gen.: Patient lying in bed, unresponsive breathing spontaneously Head: Normocephalic. Atraumatic. EENT: Pupils pinpoint. Nose without drainage. Airway intact. Throat without injection. Cardiovascular: Regular rate and rhythm. No murmurs, rubs or gallops. Respiratory: Lungs clear to auscultation bilaterally. No wheezes or rhonchi. Abdomen: Soft, nontender, nondistended. No peritoneal signs. Musculoskeletal: No gross deformities. No edema. Skin: No obvious rashes or erythema. Neuro: Withdraws to pain. Does not respond to sternal rub. Does not answer questions or follow commands. Results Labs CBC & Chem 7: 01/07/19 21:10 01/07/19 21:10 Imaging Impressions Chest X-Ray 01/07/19 20:57 CONCLUSION: No acute cardiopulmonary disease identified. Head CT 01/07/19 20:57 CONCLUSION: 1. Negative CT Head non contrast. . Caprini VTE Risk Assessment Caprini VTE Risk Assessment: No/Low Risk (score <= 1) Caprini Risk Assessment Model: Point Value = 1 Point Value = 2 Point Value = 3 Point Value = 5 Age 41-60 Minor surgery BMI > 25 kg/m2 Swollen legs Varicose veins or History of unexplained or recurrent spontaneous Oral contraceptives or hormone replacement Sepsis (< 1 month) Serious lung disease, including pneumonia (< 1 month) Abnormal pulmonary function Acute myocardial infarction Congestive heart failure (< 1 month) History of inflammatory bowel disease Medical patient at bed rest Age 61-74 Arthroscopic surgery Major open surgery (> 45 min) Laparoscopic surgery (> 45 min) Malignancy Confined to bed (> 72 hours) Immobilizing plaster cast Central venous access Age >= 75 History of VTE Family history of VTE Factor V Leiden Prothrombin [id number] Lupus anticoagulant Anticardiolipin antibodies Elevated serum homocysteine Heparin-induced thrombocytopenia Other congenital or acquired thrombophilia Stroke (< 1 month) Elective arthroplasty Hip, pelvis, or leg fracture Acute spinal cord injury (< 1 month) Prophylaxis Regimen: Total Risk Factor Score Risk Level Prophylaxis Regimen 0-1 Low Early ambulation 2 Moderate Order ONE of the following: *Sequential Compression Device (SCD) *Heparin 5000 units SQ BID 3-4 Higher Order ONE of the following medications: *Heparin 5000 units SQ TID *Enoxaparin/Lovenox 40 mg SQ daily (WT < 150 kg, CrCl > 30 mL/min) *Enoxaparin/Lovenox 30 mg SQ daily (WT < 150 kg, CrCl > 10-29 mL/min) *Enoxaparin/Lovenox 30 mg SQ BID (WT < 150 kg, CrCl > 30 mL/min) AND/OR *Sequential Compression Device (SCD) 5 or more Highest Order ONE of the following medications: *Heparin 5000 units SQ TID (Preferred with Epidurals) *Enoxaparin/Lovenox 40 mg SQ daily (WT < 150 kg, CrCl > 30 mL/min) *Enoxaparin/Lovenox 30 mg SQ daily (WT < 150 kg, CrCl > 10-29 mL/min) *Enoxaparin/Lovenox 30 mg SQ BID (WT < 150 kg, CrCl > 30 mL/min) AND *Sequential Compression Device (SCD) Assessment and Plan Plan Assessment/plan: 1. Altered mental status Head CT negative for acute process No electrolyte disturbances, ABG within normal limits Alcohol level, urine drug screen negative Salicylate and acetaminophen levels negative OB/psych drug screen pending MRI pending EEG pending Repeat Narcan dose x1 If patient's mental status does not improve, neurology consult warranted 2. Bradycardia Patient's heart rate consistently in the 40s without history of bradycardia EKG shows sinus bradycardia Monitor on telemetry Atropine bedside with pacer pads in place 3. Diabetes mellitus Patient's family does not know his home insulin regimen Hyperglycemic on arrival Sliding-scale insulin Monitor blood glucose Resume home medications once reconciled 4. Urinary retention Patient with history of "thickened urethra" that occasionally requires self catheterization Francis in place 5. Chronic hip fracture Patient has refused repair by orthopedic surgery FEN N.p.o. Electrolytes: Monitor and replete as needed NS at 100 cc/hour
[2019-01-08] MEDS: Sod Chloride 0.9% Inj 1,000 ML IV.CONT SCH ×4 (00:48→20:56)
[2019-01-08 01:15] LABS: Amphetamine Urine With Conf Neg (Neg); Benzodiazepine Urine With Conf Neg (Neg); Cocaine Urine With Conf Neg (Neg); Opiates Urine With Conf Neg (Neg)
[2019-01-08 01:16] LABS: Cannabinoid Urine With Conf Neg (Neg)
[2019-01-08] MEDS: Insulin NovoLOG Aspart Correctional Sugar Inj SQ SCH ×6 (01:59→21:39)
[2019-01-08 08:34] LABS: Baso # (Auto) 0.1 th/mm3 (0.0-0.2); Baso % (Auto) 0.5 % (0.0-2.0); Eos # (Auto) 0.1 th/mm3 (0.0-0.4); Eos % (Auto) 0.4 % (0.0-4.0); Hematocrit 43.4 % (39.0-51.0); Hemoglobin 14.6 gm/dL (13.0-17.0); Lymph # (Auto) 2.5 th/mm3 (1.0-4.8); Lymph % (Auto) 14.6 % (9.0-44.0); Mean Corpuscular HGB Conc 33.6 % (32.0-36.0); Mean Corpuscular Volume 89.5 fL (80.0-100.0); Mean Platelet Volume 9.3 fL (7.0-11.0); Mono % (Auto) 6.1 % (0.0-8.0); Neut # (Auto) 13.4 th/mm3 (1.8-7.7); Neut % (Auto) 78.4 % (16.0-70.0); Platelet Count 286 th/mm3 (150-450); Red Blood Count 4.85 mil/mm3 (4.50-5.90); Red Cell Distribution Width 14.8 % (11.6-17.2); White Blood Count 17.1 th/mm3 (4.0-11.0)
[2019-01-08 09:15] LABS: Alanine Aminotransferase 18 U/L (12-78); Albumin 2.9 g/dL (3.4-5.0); Alkaline Phosphatase 104 U/L (45-117); Anion Gap 7 meq/L (5-15); Aspartate Aminotransferase 10 U/L (15-37); Blood Urea Nitrogen 7 mg/dL (7-18); Calcium 7.5 mg/dL (8.5-10.1); Carbon Dioxide 22.4 meq/L (21.0-32.0); Chloride 119 meq/L (98-107); Glomerular Filtration Rate Greater Than 89 mL/min (>89); Glucose,Random 224 mg/dL (74-106); Potassium 3.4 meq/L (3.5-5.1); Sodium 148 meq/L (136-145); Total Protein 6.1 g/dL (6.4-8.2)
[2019-01-08 09:19] LABS: Creatine Kinase 90 U/L (39-308)
[2019-01-08] MEDS: Senna/Docusate Sodium 8.6/50 MG Tablet PO SCH ×2 (09:58→21:39)
--- NOTE | 2019-01-08 12:24 | ECG ---
Date Performed: 01/08/2019 Time Performed: 03:29:34 PTAGE: 43 years EKG: Sinus rhythm with PAC(s) Lead(s) unsuitable for analysis: V2 rSr'(V1) - probable normal variant Borderline ECG PREVIOUS TRACING : 01/07/2019 22.38 DOCTOR: Lisa Vargas Interpretating Date/Time 01/08/2019 12:22:55
--- NOTE | 2019-01-08 12:29 | ECG ---
Date Performed: 01/07/2019 Time Performed: 22:38:22 PTAGE: 43 years EKG: SINUS BRADYCARDIA WITH SINUS ARRHYTHMIA BORDERLINE ECG INTERPRETATION BASED ON A DEFAULT AG E OF 40 YEARS PREVIOUS TRACING : 04/23/2012 17.39 DOCTOR: Lisa Vargas Interpretating Date/Time 01/08/2019 12:25:48
--- NOTE | 2019-01-08 17:22 | P.PNIM ---
Subjective Interval history: Nursing reports that the patient is requiring restraints. Unable to sit still for MRI as a result. Patient himself is unable to tell me his name although he is awake. He mumbles that we are a new [place] when I asked him about location. Otherwise he is not able to demonstrate any further orientation or insight. Physical Exam Vital signs: Vital Signs 01/07/19 21:15 01/07/19 21:18 01/07/19 21:41 Temperature 97.9 F Pulse Rate 91 H 65 Respiratory Rate 16 16 Blood Pressure 165/85 H 132/85 Pulse Oximetry 98 97 96 01/07/19 22:52 01/07/19 23:43 01/08/19 00:50 Temperature Pulse Rate 55 L 48 L 65 Respiratory Rate 16 16 18 Blood Pressure 104/54 L 125/59 L 138/75 Pulse Oximetry 98 97 97 01/08/19 01:36 01/08/19 02:50 01/08/19 03:00 Temperature Pulse Rate 72 69 58 L Respiratory Rate 16 16 Blood Pressure 126/82 133/86 Pulse Oximetry 97 98 01/08/19 03:54 01/08/19 04:00 01/08/19 05:00 Temperature 98.4 F Pulse Rate 65 87 80 Respiratory Rate 15 18 Blood Pressure 114/65 Pulse Oximetry 96 01/08/19 06:00 01/08/19 07:00 01/08/19 08:00 Temperature 98.5 F Pulse Rate 75 71 51 L Respiratory Rate 18 Blood Pressure 120/65 Pulse Oximetry 93 L 01/08/19 09:00 01/08/19 10:00 01/08/19 11:00 Temperature Pulse Rate 49 L 50 L 89 Respiratory Rate Blood Pressure Pulse Oximetry 01/08/19 12:00 01/08/19 15:00 01/08/19 16:00 Temperature 98.2 F 99 F Pulse Rate 80 77 51 L Respiratory Rate 16 20 Blood Pressure 118/71 136/82 Pulse Oximetry 96 94 L Intake & Output 01/07/19 01/08/19 01/08/19 18:59 06:59 18:59 Intake Total 1000 / 1000 1000 / 1000 Output Total 1974 Balance -975 / -975 1000 / 1000 Weight 105.7 kg 105.7 kg Intake: IV 1000 / 1000 1000 / 1000 NS Inj 1,000 ML @ 100 mls/hr IV 1000 / 1000 .CONT .Q10H ERICA Rx#:[id number] NS Inj 1,000 ML @ Wide Open IV. 1000 / 1000 SIG BOLUS ONE Rx#:[id number] Output: Urine 1974 Other: Date of Last Bowel Movement 01/08/19 Weight On Admission 105.7 kg Narrative: In a tic-like fashion the patient appears to show tardive dyskinesia this tongue Awake and alert, but disoriented as previously mentioned Heart sounds regular rate rhythm Clear lungs bilaterally, unlabored breathing No facial droop, no slurred speech, PEERLA Follows commands upon prompting the upper extremities, sponatenously moves his lower extremities No lower extremity edema Urinary Catheter Management Indwelling Urethral Catheter: Cath placed during this visit: yes Reason for continuing: Hourly intake/output Insertion date: 01/08/19 Insertion time: 00:15 Results Labs CBC & Chem 7: 01/09/19 06:11 01/09/19 06:11 Labs: Microbiology 01/07/19 23:15 Blood - Peripheral Aerobic Blood Culture - Preliminary No growth in 1 day 01/07/19 23:15 Blood - Peripheral Anaerobic Blood Culture - Preliminary No growth in 1 day 01/07/19 23:05 Blood - Peripheral Aerobic Blood Culture - Preliminary No growth in 1 day 01/07/19 23:05 Blood - Peripheral Anaerobic Blood Culture - Preliminary No growth in 1 day Imaging Imaging: Impressions Chest X-Ray 01/07/19 20:57 CONCLUSION: No acute cardiopulmonary disease identified. Head CT 01/07/19 20:57 CONCLUSION: 1. Negative CT Head non contrast. . Assessment and Plan Plan 43-year-old white male admitted for altered mental status. 1. Altered mental status Head CT negative for acute process No electrolyte disturbances, ABG within normal limits Alcohol level, urine drug screen negative Salicylate and acetaminophen levels negative OB/psych drug screen pending Repeat Narcan dose x1 If patient's mental status does not improve Home meds list obtained [facility] which apparently includes perphenazine, Remeron, hydroxyzine. Will consult psychiatry to see which 1 of these would be most appropriate to restart. will have geodon as needed. MRI was deferred due to poor cooperation, if patient's overall status significantly improves may not need MRI. But otherwise we will have to proceed with sedation. EEG pending 2. Asymptomatic bradycardia, monitor, telemetry 3. Diabetes mellitus Patient's family does not know his home insulin regimen Hyperglycemic on arrival Sliding-scale insulin Monitor blood glucose consider home medications once reconciled 4. Urinary retention Patient with history of "thickened urethra" that occasionally requires self catheterization Francis in place 5. Chronic hip fracture Patient has refused repair by orthopedic surgery
[2019-01-08] MEDS: Mirtazapine 15 MG Tablet PO SCH (21:39)
--- NOTE | 2019-01-08 22:57 | MG ---
cc: William Macdonald MD EEG RECORD NUMBER: [id number] High amplitude theta delta frequencies 4-6 Hz, 20-60 microvolts. Left frontal sharp transients. Bisynchronous theta delta frequencies occurring, sharply contoured waveform generalized fashion at epoch 27. Rhythmic delta activity occurring at epoch 66. Frontally dominant small sharp wave, epoch 67. Reduced driving with photic stimulation. Single lead EKG showing sinus rhythm. INTERPRETATION: Moderate encephalopathy. Nonspecific changes as noted above. Clinical correlation. MD ANISHA [place]/jayshree , 10:35 PM , 10:40 PM
[2019-01-09] MEDS: Insulin NovoLOG Aspart Correctional Sugar Inj SQ SCH ×5 (04:33→21:17)
[2019-01-09] MEDS: Sod Chloride 0.9% Inj 1,000 ML IV.CONT SCH ×3 (04:50→18:08)
[2019-01-09 06:44] LABS: Baso # (Auto) 0.1 th/mm3 (0.0-0.2); Baso % (Auto) 0.6 % (0.0-2.0); Eos # (Auto) 0.2 th/mm3 (0.0-0.4); Eos % (Auto) 1.4 % (0.0-4.0); Hematocrit 46.1 % (39.0-51.0); Hemoglobin 15.7 gm/dL (13.0-17.0); Lymph # (Auto) 2.9 th/mm3 (1.0-4.8); Lymph % (Auto) 23.7 % (9.0-44.0); Mean Corpuscular Hemoglobin 30.4 pg (27.0-34.0); Mean Corpuscular Volume 89.3 fL (80.0-100.0); Mean Platelet Volume 8.8 fL (7.0-11.0); Mono # (Auto) 0.8 th/mm3 (0.0-0.9); Mono % (Auto) 6.5 % (0.0-8.0); Neut # (Auto) 8.3 th/mm3 (1.8-7.7); Neut % (Auto) 67.8 % (16.0-70.0); Platelet Count 250 th/mm3 (150-450); Red Blood Count 5.16 mil/mm3 (4.50-5.90); Red Cell Distribution Width 14.6 % (11.6-17.2); White Blood Count 12.3 th/mm3 (4.0-11.0)
[2019-01-09 07:03] LABS: Anion Gap 7 meq/L (5-15); Blood Urea Nitrogen 8 mg/dL (7-18); Calcium 8.1 mg/dL (8.5-10.1); Carbon Dioxide 22.6 meq/L (21.0-32.0); Chloride 117 meq/L (98-107); Glomerular Filtration Rate Greater Than 89 mL/min (>89); Glucose,Random 228 mg/dL (74-106); Potassium 3.3 meq/L (3.5-5.1); Sodium 147 meq/L (136-145)
[2019-01-09 07:29] LABS: Creatine Kinase 72 U/L (39-308)
[2019-01-09] MEDS: Senna/Docusate Sodium 8.6/50 MG Tablet PO SCH ×2 (09:15→21:08)
[2019-01-09] MEDS ORDERED: Vancomycin Consult Pharmacy OTHER PRN (11:58)
--- NOTE | 2019-01-09 12:02 | P.PNIM ---
Subjective Interval history: Nursing reports that the lab notified that the patient is Gram positive 2 out of 2 for blood cultures. Patient himself says he feels okay. Is able to tell me that he is here at [place] that it is the month of December and the year of 2018. But he denies urinating upon himself and has poor insight towards his hospitalization. Says he lives with his dad. Physical Exam Vital signs: Vital Signs 01/08/19 12:00 01/08/19 13:00 01/08/19 14:00 Temperature 98.2 F Pulse Rate 80 80 64 Respiratory Rate 16 Blood Pressure 118/71 Pulse Oximetry 96 01/08/19 15:00 01/08/19 16:00 01/08/19 17:00 Temperature 99 F Pulse Rate 77 77 66 Respiratory Rate 20 Blood Pressure 136/82 Pulse Oximetry 94 L 01/08/19 18:00 01/08/19 19:00 01/08/19 20:00 Temperature 98.5 F Pulse Rate 48 L 94 H 86 Respiratory Rate 18 Blood Pressure 151/99 H Pulse Oximetry 93 L 01/08/19 21:00 01/08/19 22:00 01/08/19 23:00 Temperature Pulse Rate 96 H 64 57 L Respiratory Rate Blood Pressure Pulse Oximetry 01/09/19 00:00 01/09/19 01:00 01/09/19 02:00 Temperature 98.4 F Pulse Rate 68 58 L 64 Respiratory Rate 18 Blood Pressure 136/98 H Pulse Oximetry 96 01/09/19 03:00 01/09/19 04:00 01/09/19 05:00 Temperature 98 F Pulse Rate 55 L 60 59 L Respiratory Rate 18 Blood Pressure 135/86 Pulse Oximetry 96 01/09/19 06:00 01/09/19 07:00 01/09/19 08:00 Temperature 98.6 F Pulse Rate 67 67 76 Respiratory Rate 18 Blood Pressure 145/93 H Pulse Oximetry 94 L 01/09/19 09:00 Temperature Pulse Rate 68 Respiratory Rate Blood Pressure Pulse Oximetry Intake & Output 01/08/19 01/09/19 01/09/19 18:59 06:59 18:59 Intake Total 1000 / 1000 1100 / 1100 Output Total 1000 / 1000 1150 / 1150 Balance 0 / 0 -50 / -50 Weight 105.7 kg 103.1 kg Intake: IV 1000 / 1000 1000 / 1000 NS Inj 1,000 ML @ 100 mls/hr IV 1000 / 1000 1000 / 1000 .CONT .Q10H ERICA Rx#:[id number] Oral 0 / 0 100 / 100 Output: Urine Amount (Catheter) 1000 / 1000 1150 / 1150 Indwelling Urethral Catheter 1000 / 1000 1150 / 1150 Other: Date of Last Bowel Movement 01/08/19 01/08/19 Weight On Admission 105.7 kg Narrative: In a tic-like fashion the patient appears to show tardive dyskinesia via his tongue which is less pronounced today Awake and alert, more oriented today as mentioned above in subjective line, appears calmer today than yesterday Heart sounds regular rate rhythm Clear lungs bilaterally, unlabored breathing No facial droop, no slurred speech Follows commands Urinary Catheter Management Indwelling Urethral Catheter: Cath placed during this visit: yes Reason for continuing: Hourly intake/output Insertion date: 01/08/19 Insertion time: 00:15 Results Labs CBC & Chem 7: 01/09/19 06:11 01/09/19 06:11 Labs: Microbiology 01/07/19 23:15 Blood - Peripheral Aerobic Blood Culture - Preliminary gram positive cocci 01/07/19 23:15 Blood - Peripheral Anaerobic Blood Culture - Preliminary gram positive cocci 01/07/19 23:05 Blood - Peripheral Aerobic Blood Culture - Preliminary gram positive cocci 01/07/19 23:05 Blood - Peripheral Anaerobic Blood Culture - Preliminary gram positive cocci Assessment and Plan Plan 43-year-old white male admitted for altered mental status. 1. Altered mental status -Resolved since admission, workup so far is negative including UDS -Could be secondary to bacteremia versus possible noncompliance with his medications -EEG results are negative No electrolyte disturbances, ABG within normal limits Home meds list obtained from [facility] records which apparently includes perphenazine, Remeron, hydroxyzine. Will consult psychiatry to see which 1 of these would be most appropriate to restart. will have geodon as needed. Awaiting pyschiatry input 2. Bacteremia Unsure of source but due to gram-positive nature, will cover with Levaquin and Vanco mycin for now, consulting ID 2. Asymptomatic bradycardia, monitor, telemetry 3. Diabetes mellitus Patient's family does not know his home insulin regimen Hyperglycemic on arrival Sliding-scale insulin Monitor blood glucose consider home medications once reconciled 4. Urinary retention Patient with history of "thickened urethra" that occasionally requires self catheterization Francis in place 5. Chronic hip fracture Patient has refused repair by orthopedic surgery
--- NOTE | 2019-01-09 15:32 | P.CONPSY ---
Provisional Diagnosis Admission Date: January 07, 2019 23:49 Talihina I.: Paranoid schizophrenia, personality disorder History of Present Illness Service: [facility] Primary Care Provider: UNKNOWN History of Present Illness: The patient is a 43-year-old man, domiciled his father in [place], single, unemployed, no kids, supported by [facility], with a psychiatric history of schizophrenia, personality disorder, previous psychiatric admissions, remote suicidal attempts, established outpatient care in [facility], he sees [facility] Ranulfo, the patient has been stable he Haldol decanoate 150 mg, last dose perphenazine 8 mg at bedtime, Remeron 30, vistaryl 25 mgs, mg at bedtime, with a past medical history of diabetes mellitus, chronic hip fracture and GERD, who presents to the emergency department for the evaluation of altered mental status. As per family members the patient reportedly the patient became altered earlier and was acting as if he was unable to see. He then became unable to ambulate and was "comatose in his chair." He lost bladder continence. He then became unresponsive and did not answer the patient's questions. At the time of initial medical interview, the patient was not respondinng to sternal rub but will withdraw to pain. Further review of systems is unobtainable given patient' s altered mental status. Patient was admitted due to altered mental status. EEG results are negative. No electrolyte disturbances, ABG within normal limits. He also has Bacteremia, Unsure of source but due to gram-positive nature , will cover with Levaquin and Vanco mycin for now. Chart was reviewed. The patient was interviewed. Collateral information from his brother Lloyd was obtained. Brother reports that he is surprised that the patient is much better today. He clarifies that the patient has been quite stable of his schizophrenia and current psychotropic regimen. Family does not have any safety concern for the patient to be discharged once medically and psychiatrically stable. On psychiatric evaluation the patient is calm, cooperative, a little bit flat. However, the patient reports that he feels much better today. When I asking about his mood he says that he feels very good. He denies symptoms of depression, denies symptoms of anxiety, he denies anhedonia, denies hopelessness, denies helplessness, he denies suicidal and was ideation, he denies visual and auditory hallucinations. As per brother, the patient was a little bit disorganized, disoriented, unresponsive for several hours. Patient does not seem to be internally stimulated, there is no paranoia , no loosening of associations present during this evaluation. He is fully oriented x3, no attention deficit, no fluctuation of consciousness. I also spoke with nurse practitioner in [facility] to confirm his medications, his last dose of Haldol decanoate and his next appointment. PPHx: with a psychiatric history of schizophrenia, personality previous psychiatric admissions, remote suicidal attempts, established outpatient care in [facility], the patient has been stable he Haldol decanoate 150 mg, last dose in December 21, perphenazine 8 mg at bedtime, Remeron 30 mg at bedtime. He follows up with Ranulfo in [facility], last appointment was on December 21. Next appointment is January 18. PMHx: with a past medical history of diabetes mellitus, chronic hip fracture and GERD Family Hx: no psychiatric psychiatric history. Substance Hx: no use of illegal drugs, no alcohol Social Hx: man, born and raised in [place], domiciled his father in [place], single, unemployed, no kids, supported by [facility], his highest level of education is high school Review of Systems All other systems reviewed negative except as stated in HPI Psychiatric: Reports confusion, Reports other (Flat affect) PMF - History History Provided By: Family Member, Electronic Wirer / EMT - Medical History Medical History: Medical History (Last Reviewed 01/09/19 @ 12:41 by Valarie Rowell) Diabetes GERD (gastroesophageal reflux disease) Hip fracture Recent surgical procedure on lower extremity Schizophrenia Urinary retention - Family History Family History: Family History (Last Reviewed 01/07/19 @ 21:43 by JORGE Magana) Other Coronary artery disease Diabetes mellitus - Tobacco History Second Hand Smoke Exposure: No Smoking Status: Never smoker - Alcohol History How Often Do You Have a Drink Containing Alcohol: Never - Travel History Recent Travel in the [place] Within the Last 8 Weeks: No Recent Travel Out of the Country Within the Last 8 Weeks: No - Immunization History Tetanus Immunization: <5 Years Medications and Allergies Active Medications: Active Medications Al Hydroxide/Mg Hydroxide (Milk Of Magndiana Liq) 30 ml PO Q12H PRN PRN Reason: Mild Constipation Bisacodyl (Dulcolax Supp) 10 mg RECTAL DAILY PRN PRN Reason: SEVERE CONSITIPATION Dextrose (D50w Vial) 50 ml IV.PUSH UNSCH PRN PRN Reason: PER HYPOGLYCEMIA PROTOCOL Glucagon (Glucagon Inj) 1 mg OTHER PRN PRN PRN Reason: for Hypoglycemia Protocol Hydroxyzine Pamoate (Vistaril) [address] [facility] Last Admin: 01/08/19 21:38 Dose: 50 mg Sodium Chloride (Ns Inj) 1,000 mls @ 100 mls/hr IV.CONT .Q10H [facility] Last Admin: 01/09/19 06:30 Dose: 50 mls/hr Levofloxacin/Dextrose (Levaquin 750 Mg Premix Inj) 150 mls @ 100 mls/hr IV.SIG Q24H [facility] Last Admin: 01/09/19 13:28 Dose: 100 mls/hr Vancomycin HCl 1,500 mg/ (Sodium Chloride) 515 mls @ 257.5 mls/hr IV.SIG Q12H [facility] Insulin Aspart (Novolog Insulin Correctional Sugar Inj) 0 unit SQ ACHS AND 3AM ERICA; Protocol Last Admin: 01/09/19 12:12 Dose: Not Given Lactulose (Lactulose Liq) 30 ml PO DAILY PRN PRN Reason: SEVERE CONSITIPATION Mirtazapine (Remeron) [address] [facility] Last Admin: 01/08/19 21:39 Dose: 30 mg Miscellaneous Information ([facility] Ordered Lab Info) 0 each OTHER ONCE ONE Stop: 01/11/19 01:46 Ondansetron HCl (Zofran Inj) 4 mg IV.PUSH Q6H PRN PRN Reason: NAUSEA OR VOMITING Perphenazine (Trilafon) [address] [facility] Pharmacy Profile Note (Vancomycin Consult Pharmacy) 1 each OTHER UNSCH PRN PRN Reason: Pharmacy to dose Senna/Docusate Sodium (Silva-Colace) 1 tab PO BID [facility] Last Admin: 01/09/19 09:15 Dose: Not Given Sennosides (Senokot) 17.2 mg PO Q12H PRN PRN Reason: Moderate Constipation Sodium Chloride (Ns Flush) 2 ml IV.FLUSH BID [facility] Last Admin: 01/09/19 09:15 Dose: Not Given Sodium Chloride (Ns Flush) 2 ml IV.FLUSH PRN PRN PRN Reason: FLUSH AFTER USING IV ACCESS Ziprasidone (Geodon Inj) 10 mg IM Q12H PRN PRN Reason: AGITATION Allergies Allergy/AdvReac Type Severity Reaction Status Date / Time iodine Allergy Severe RASH Unverified 07/11/17 19:24 lidocaine Allergy Severe UNKNOWN Unverified 07/11/17 19:24 penicillin G Allergy Severe Unverified 07/11/17 19:24 prednisone Allergy Severe UNKNOWN Unverified 07/11/17 19:24 sodium iodide Allergy Severe RASH Unverified 07/11/17 19:24 sodium iodide Allergy Severe RASH Unverified 07/11/17 19:24 Home Medications Medication Instructions Recorded Confirmed Type haloperidol decanoate 150 mg IM Q4W 01/08/19 01/08/19 History hydroxyzine pamoate 50 mg PO HS 01/08/19 01/08/19 History mirtazapine 30 mg PO HS 01/08/19 01/08/19 History perphenazine 4 mg PO DAILY 01/08/19 01/08/19 History perphenazine 8 mg PO HS 01/08/19 01/08/19 History Exam Vital signs: Vital Signs 01/08/19 16:00 01/08/19 17:00 01/08/19 18:00 Temperature 99 F Pulse Rate 77 66 48 L Respiratory Rate 20 Blood Pressure 136/82 Pulse Oximetry 94 L 01/08/19 19:00 01/08/19 20:00 01/08/19 21:00 Temperature 98.5 F Pulse Rate 94 H 86 96 H Respiratory Rate 18 Blood Pressure 151/99 H Pulse Oximetry 93 L 01/08/19 22:00 01/08/19 23:00 01/09/19 00:00 Temperature 98.4 F Pulse Rate 64 57 L 68 Respiratory Rate 18 Blood Pressure 136/98 H Pulse Oximetry 96 01/09/19 01:00 01/09/19 02:00 01/09/19 03:00 Temperature Pulse Rate 58 L 64 55 L Respiratory Rate Blood Pressure Pulse Oximetry 01/09/19 04:00 01/09/19 05:00 01/09/19 06:00 Temperature 98 F Pulse Rate 60 59 L 67 Respiratory Rate 18 Blood Pressure 135/86 Pulse Oximetry 96 01/09/19 07:00 01/09/19 08:00 01/09/19 09:00 Temperature 98.6 F Pulse Rate 67 76 68 Respiratory Rate 18 Blood Pressure 145/93 H Pulse Oximetry 94 L 01/09/19 10:00 01/09/19 11:00 01/09/19 12:00 Temperature 98.6 F Pulse Rate 85 85 75 Respiratory Rate 16 Blood Pressure 155/90 H Pulse Oximetry 96 01/09/19 13:00 Temperature Pulse Rate 76 Respiratory Rate Blood Pressure Pulse Oximetry Intake & Output 01/08/19 01/09/19 01/09/19 18:59 06:59 18:59 Intake Total 1000 / 1000 1100 / 1100 Output Total 1000 / 1000 1150 / 1150 Balance 0 / 0 -50 / -50 Weight 105.7 kg 103.1 kg Intake: IV 1000 / 1000 1000 / 1000 NS Inj 1,000 ML @ 100 mls/hr IV 1000 / 1000 1000 / 1000 .CONT .Q10H [facility] Rx#:[id number] Oral 0 / 0 100 / 100 Output: Urine Amount (Catheter) 1000 / 1000 1150 / 1150 Indwelling Urethral Catheter 1000 / 1000 1150 / 1150 Other: Date of Last Bowel Movement 01/08/19 01/08/19 Weight On Admission 105.7 kg Narrative: No tremors, no EPS, no psychomotor agitation or retardation, no gait disturbance , no catatonia - Constitutional no acute distress, mild distress - Routine HEENT Exam Head: Present: normocephalic, atraumatic Eye: Present: EOMI, PERRL Mental Status Examination Appearance: Appropriate Consciousness: Alert Orientation: x4 Motor Activity: Normal gait Speech: Unremarkable Language: Adequate Fund of Knowledge: Adequate Attention and Concentration: Adequate Memory: Unremarkable Mood: Appropriate Affect: Flat Thought Process & Associations: Intact Thought Content: Appropriate Hallucination Type: None Delusion Type: None Suicidal Ideation: No Suicidal Plan: No Suicidal Intention: No Homicidal Ideation: No Homicidal Plan: No Homicidal Intention: No Insight: Fair Judgment: Impulsive Assessment and Plan - Assessment (1) Paranoid schizophrenia Code(s): F20.0 - Paranoid schizophrenia Status: Acute - Plan Plan: on my psychiatric evaluation today the patient presents calm, cooperative, a little bit confused at times, with flat affect, but does not present any neuropsychiatric symptoms that require an immediate psychiatric intervention. The patient denies symptoms of depression, he denies anxiety, david and psychosis. He denies suicidal and homicidal ideation, he denies visual and auditory hallucinations. The patient is mostly logical, coherent, relevant, at times concrete. He is fully oriented x3 at the moment, at times he is confused , but redirectable. He does not present any prominent paranoia, loosening of associations, agitation, aggressive behavior, ideas of reference. As per family member, specifically his brother Lloyd, the patient has been quite mentally and behaviorally stable in current psychotropic regimen. There is no safety concern at this moment. I have also communicated with nurse practitioner in [facility] who confirms that the patient has been compliant with medications and follow-ups. Patient does not meet criteria for involuntary psychiatric admission at the moment. I will reinitiate his perphenazine 4 mg at bedtime. Will restart Remeron 30 mg at bedtime. It is important to clarify the last dose of Haldol decanoate was in December 21. Next one should be close to January 18. In January 18 is his next appointment in [facility]. Extensive support, motivation, psych education provided. Consult appreciated. Justification for Continued Inpatient Stay: No admission indicated.
--- NOTE | 2019-01-09 15:59 | MB ---
cc: Elliot Parisi MD DATE: 01/09/2019 REQUESTING PHYSICIAN: Dr. Ralph Rae REASON: Gram-positive bacteremia. HISTORY OF PRESENT ILLNESS: This is a 43-year-old white male who was brought to the emergency department because of altered mental status. The patient was noted to have difficulties walking and was stumbling to walk and was urinating on himself. He was noted to have severely altered mental status with slurred speech and difficulty answering questions appropriately when he presented to the emergency department. He has history of schizophrenia. It was felt that his symptoms were not similar to his usual presentation of schizophrenia. On admission, his white count was 12.8. His vital signs were normal. Urinalysis was unremarkable. The patient was admitted to the hospital. Blood cultures taken on admission had gram-positive cocci in 4 bottles with 1 identified as Staphylococcus coagulase-negative. The patient remains afebrile. The RN caring for him today reports to me that he was somewhat agitated, although not violent yesterday and this morning. He is currently calm and was able to converse with me without difficulty. However, his affect is flat and I am unable to get any meaningful history from him, but he does answer yes/no to questions and nods his head. The patient denies history of blood infection in the past. Upon questioning, he indicates to me that he has had HIV disease and has been treated for it in [place]. When asked who is his local physician, he tells me a physician in [place]. He is oriented to self only. His white blood cell count had increased to 17.1 yesterday and today it is down to 12.3. He is currently on vancomycin. He denies nausea, vomiting, abdominal pain, chills, shortness of breath, or dysuria. He denies IV drug use. PAST MEDICAL HISTORY: Diabetes mellitus, gastroesophageal reflux disease, urinary retention, hip fracture, schizophrenia. ALLERGIES: PENICILLIN G, LIDOCAINE, IODINE, PREDNISONE, SODIUM IODIDE. SOCIAL HISTORY: No tobacco, no alcohol, no illicit drugs. FAMILY HISTORY: Noncontributory. REVIEW OF SYSTEMS: CONSTITUTIONAL: Denies fever or chills. HEAD, EARS, EYES, NOSE AND THROAT: No difficulty with vision. No nasal bleeding. No difficulty swallowing. No neck pain or swelling. CARDIOVASCULAR: Denies chest pain or palpitation. RESPIRATORY: Denies cough or shortness of breath. GASTROINTESTINAL: Denies nausea, vomiting, abdominal pain or diarrhea. GENITOURINARY: Denies urgency, frequency or dysuria. HEMATOLOGIC: Denies bruising. INTEGUMENTARY: Denies skin rash. NEUROLOGIC: Denies problems with coordination. PSYCHIATRIC: Denies mood changes. PHYSICAL EXAMINATION: GENERAL: Well-developed male in no acute distress. He appears somewhat lethargic. VITAL SIGNS: Temperature 98.6, BP 155/90, respirations 16, heart rate 86. HEENT: Head is atraumatic. Extraocular movements grossly intact. Pupils reactive to light. No icterus. Oropharynx edentulous. No visible lesions. No thrush. NECK: Supple without adenopathy. LUNGS: Clear to auscultation. HEART: Regular S1, S2, without murmurs, rubs or gallops. ABDOMEN: Bowel sounds present. Soft, no tenderness appreciated. No masses palpable. RECTAL: Not performed. EXTREMITIES: No clubbing, cyanosis or edema. SKIN: No rash. NEUROLOGIC: Nonfocal. Patient has flat affect, but is cooperative. LABORATORY DATA: WBC 12.3, platelets 250,000, hemoglobin 15.7, 67% neutrophils, 23%lymphocytes. Creatinine 0.74. Estimated GFR 89. Sodium 147. IMPRESSION: 1. Gram-positive bacteremia, questionable etiology. The patient has no known history of intravenous drug use. He denies using IV drugs. 2. Leukocytosis. 3. The patient was admitted with altered mental status. He has history of schizophrenia and has a flat affect currently. Unclear whether the altered mental status was because of sepsis. 4. Diabetes mellitus. 5. Questionable HIV status. The patient reports to me that he is HIV positive. However, we have no laboratory documentation to that effect. He had serologic testing for hepatitis which was negative in 2012, but no HIV testing was performed at that time. RECOMMENDATIONS: 1. Continue the vancomycin. 2. Stop Levaquin. 3. Repeat the blood cultures. 4. Monitor blood culture for identity of the current organism. 5. Obtain HIV test to check the patient's HIV status. 6. Monitor the white blood cell count. 7. Monitor the clinical status. Thank you for this consultation. I will monitor his progress and will make further recommendations upon followup if necessary. Currently, the patient is awake and alert, oriented, somewhat lethargic. MD JOSE Alegria/davida , 03:06 PM , 03:27 PM
[2019-01-09] MEDS: Vancomycin Inj 1,500 MG in Sodium Chlor 0.9% Inj 500 ML IV.SIG SCH (16:02)
--- NOTE | 2019-01-09 20:35 | ECG ---
Date Performed: 01/08/2019 Time Performed: 17:21:20 PTAGE: 43 years EKG: Sinus rhythm with PAC(s) Borderline ECG PREVIOUS TRACING : 01/08/2019 03.29 Since the previous tracing, no significant change noted DOCTOR: Gareth Centeno Interpretating Date/Time 01/09/2019 20:33:44
[2019-01-09] MEDS: Mirtazapine 15 MG Tablet PO SCH (21:08)
[2019-01-10] MEDS: Sod Chloride 0.9% Inj 1,000 ML IV.CONT SCH ×3 (00:50→21:06)
[2019-01-10] MEDS: Insulin NovoLOG Aspart Correctional Sugar Inj SQ SCH ×5 (02:16→21:04)
[2019-01-10] MEDS: Vancomycin Inj 1,500 MG in Sodium Chlor 0.9% Inj 500 ML IV.SIG SCH ×2 (02:16→15:00)
[2019-01-10 07:15] LABS: Glomerular Filtration Rate Greater Than 89 mL/min (>89)
[2019-01-10] MEDS: Senna/Docusate Sodium 8.6/50 MG Tablet PO SCH ×2 (08:56→21:05)
--- NOTE | 2019-01-10 12:05 | P.PNPSY ---
Subjective Remarks: I have seen today the patient for psychiatric reevaluation. Patient was found in his room, very calm, cooperative, pleasant. He was able to recognize me from yesterday encounter. He reports that he feels much better today. He says that he is happy that he is going home. He denies depression, denies anxiety, denies david and psychosis. He denies suicidal and homicidal ideation, denies visual and auditory hallucinations. He has been compliant medications, no significant side effects. There is no evidence of paranoia, no ideas of reference, no agitation, no aggressive behavior. Mental Status Examination Appearance: Appropriate Consciousness: Alert Orientation: x4 Motor Activity: Normal gait Speech: Unremarkable Language: Adequate Fund of Knowledge: Adequate Attention and Concentration: Adequate Memory: Unremarkable Mood: Appropriate Affect: Flat Thought Process & Associations: Intact Thought Content: Appropriate Hallucination Type: None Delusion Type: None Suicidal Ideation: No Suicidal Plan: No Suicidal Intention: No Homicidal Ideation: No Homicidal Plan: No Homicidal Intention: No Insight: Adequate Judgment: Adequate Assessment and Plan - Assessment (1) Paranoid schizophrenia Code(s): F20.0 - Paranoid schizophrenia Status: Acute - Plan Plan: Patient presents at baseline. No acute psychosis at the moment. Compliant medications, no significant side effects. Continue current psychotropic regimen. He is psychiatrically cleared to continue medical treatment. Remember the patient has an appointment in [facility] in January 18. Justification for Continued Inpatient Stay: No admission indicated
--- NOTE | 2019-01-10 13:49 | P.PNID ---
Subjective Remarks: Patient is in no acute distress. He appears calm. Afebrile. Repeat blood culture pending. HIV test is negative. This is a 43-year-old white male who was brought to the emergency department because of altered mental status. The patient was noted to have difficulties walking and was stumbling to walk and was urinating on himself. He was noted to have severely altered mental status with slurred speech and difficulty answering questions appropriately when he presented to the emergency department. He has history of schizophrenia. It was felt that his symptoms were not similar to his usual presentation of schizophrenia. Past Medical History: PAST MEDICAL HISTORY: Diabetes mellitus, gastroesophageal reflux disease, urinary retention, hip fracture, schizophrenia. Allergies/Adverse Reactions: Allergies iodine Allergy (Severe, Unverified 07/11/17 19:24) RASH lidocaine Allergy (Severe, Unverified 07/11/17 19:24) UNKNOWN penicillin G Allergy (Severe, Unverified 07/11/17 19:24) prednisone Allergy (Severe, Unverified 07/11/17 19:24) UNKNOWN sodium iodide Allergy (Severe, Unverified 07/11/17 19:24) RASH sodium iodide Allergy (Severe, Unverified 07/11/17 19:24) RASH Objective Vital Signs 01/09/19 14:00 01/09/19 15:00 01/09/19 16:00 Temperature 98.7 F Pulse Rate 88 88 92 H Respiratory Rate 16 Blood Pressure 131/82 Pulse Oximetry 96 01/09/19 17:00 01/09/19 18:00 01/09/19 19:00 Temperature Pulse Rate 104 H 101 H 98 H Respiratory Rate Blood Pressure Pulse Oximetry 01/09/19 20:00 01/09/19 21:00 01/09/19 22:00 Temperature 98.1 F Pulse Rate 86 98 H 80 Respiratory Rate 17 Blood Pressure 153/98 H Pulse Oximetry 95 01/09/19 23:00 01/10/19 00:00 01/10/19 01:00 Temperature 97.9 F Pulse Rate 78 67 85 Respiratory Rate 17 Blood Pressure 148/94 H Pulse Oximetry 98 01/10/19 02:00 01/10/19 03:00 01/10/19 04:00 Temperature 98 F Pulse Rate 73 80 91 H Respiratory Rate 16 Blood Pressure 147/92 H Pulse Oximetry 97 01/10/19 05:00 01/10/19 06:00 01/10/19 07:55 Temperature 98.5 F Pulse Rate 83 83 83 Respiratory Rate 16 Blood Pressure 155/96 H Pulse Oximetry 97 Intake & Output 01/09/19 01/10/19 01/10/19 18:59 06:59 18:59 Intake Total 1385 / 1385 1255 / 1255 1000 / 1000 Output Total 1100 / 1100 1300 / 1300 Balance 285 / 285 -45 / -45 1000 / 1000 Weight 103.9 kg Intake: IV 665 / 665 1015 / 1015 1000 / 1000 NS Inj 1,000 ML @ 100 mls/hr IV 500 / 500 1000 / 1000 .CONT .Q10H ERICA Rx#:[id number] Levaquin 750 mg Premix Inj 150 150 / 150 ML @ 100 mls/hr IV.SIG Q24H ERICA Rx#:[id number] Vancomycin Inj 1,500 MG In NS 515 / 515 515 / 515 Inj 500 ML @ 257.5 mls/hr IV. SIG Q12H ERICA Rx#:[id number] Oral 720 / 720 240 / 240 Output: Urine 1100 / 1100 Urine Amount (Catheter) 1300 / 1300 Indwelling Urethral Catheter 1300 / 1300 Other: Date of Last Bowel Movement 01/08/19 01/08/19 01/07/19 23:15 Blood - Peripheral Aerobic Blood Culture - Final Staphylococcus coag negative 01/07/19 23:15 Blood - Peripheral Anaerobic Blood Culture - Final Staphylococcus coag negative 01/07/19 23:05 Blood - Peripheral Aerobic Blood Culture - Final Staphylococcus coag negative 01/07/19 23:05 Blood - Peripheral Anaerobic Blood Culture - Final Staphylococcus coag negative Viridans streptococcus grp 01/09/19 18:35 Blood - Peripheral Aerobic Blood Culture - Preliminary No growth in 1 day 01/09/19 18:35 Blood - Peripheral Anaerobic Blood Culture - Preliminary No growth in 1 day 01/09/19 18:40 Blood - Peripheral Aerobic Blood Culture - Preliminary No growth in 1 day 01/09/19 18:40 Blood - Peripheral Anaerobic Blood Culture - Preliminary No growth in 1 day Lab - Hematology Results 01/09/19 06:11 WBC 12.3 H RBC 5.16 Hgb 15.7 Hct 46.1 MCV 89.3 MCH 30.4 MCHC 34.0 RDW 14.6 Plt Count 250 MPV 8.8 Neut % (Auto) 67.8 Lymph % (Auto) 23.7 [place] % (Auto) 6.5 Eos % (Auto) 1.4 Baso % (Auto) 0.6 Neut # (Auto) 8.3 H Lymph # (Auto) 2.9 [place] # (Auto) 0.8 Eos # (Auto) 0.2 Baso # (Auto) 0.1 WBC Differential . Differential Comment Auto diff final Lab - Chemistry Results 01/08/19 01/08/19 01/09/19 16:34 21:02 04:19 Sodium Potassium Chloride Carbon Dioxide Anion Gap BUN Creatinine Estimated GFR POC Glucose 228 H 215 H 212 H Random Glucose Calcium Total Creatine Kinase 01/09/19 01/09/19 01/09/19 06:11 07:45 11:31 Sodium 147 H Potassium 3.3 L Chloride 117 H Carbon Dioxide 22.6 Anion Gap 7 BUN 8 Creatinine 0.74 Estimated GFR Greater than 89 POC Glucose 217 H 199 H Random Glucose 228 H Calcium 8.1 L Total Creatine Kinase 72 01/09/19 01/09/19 01/10/19 16:54 21:10 02:14 Sodium Potassium Chloride Carbon Dioxide Anion Gap BUN Creatinine Estimated GFR POC Glucose 222 H 232 H 187 H Random Glucose Calcium Total Creatine Kinase 01/10/19 01/10/19 01/10/19 06:17 07:52 11:44 Sodium Potassium Chloride Carbon Dioxide Anion Gap BUN Creatinine 0.73 Estimated GFR Greater than 89 POC Glucose 224 H 237 H Random Glucose Calcium Total Creatine Kinase Imaging: ITS Impressions Chest X-Ray 01/07/19 20:57 CONCLUSION: No acute cardiopulmonary disease identified. Head CT 01/07/19 20:57 CONCLUSION: 1. Negative CT Head non contrast. . Physical Exam: PHYSICAL EXAMINATION: GENERAL: Patient is awake. Alert. No acute distress. HEENT: Head is atraumatic. Extraocular movements grossly intact. Pupils reactive to light. No icterus. Oropharynx edentulous. No visible lesions. No thrush. NECK: Supple without adenopathy. LUNGS: Clear to auscultation. HEART: Regular S1, S2, without murmurs, rubs or gallops. ABDOMEN: Bowel sounds present. Soft, no tenderness appreciated. No masses palpable. EXTREMITIES: No clubbing, cyanosis or edema. SKIN: No rash. NEUROLOGIC: Nonfocal. PSYCHIATRIC: Flat affect, but is calm and cooperative. Assessment and Plan - Plan IMPRESSION: 1. Gram-positive bacteremia, questionable etiology. The patient has no known history of intravenous drug use. He denies using IV drugs. Probable contaminant. However blood culture pending. 2. Leukocytosis. 3. The patient was admitted with altered mental status. He has history of schizophrenia and has a flat affect currently. Unclear whether the altered mental status was because of sepsis. Mental status appears to have improved. 4. Diabetes mellitus. 5. Questionable HIV status. HIV test is negative and therefore patient unlikely to have had HIV in the past as he stated. Given his thought pattern, he is information on past HIV is not reliable. RECOMMENDATIONS: 1. Continue the vancomycin. 2. Follow the repeat blood cultures 3. The white blood cell count 4. Monitor clinical status.
[2019-01-10 14:47] LABS: Anion Gap 6 meq/L (5-15); Blood Urea Nitrogen 11 mg/dL (7-18); Calcium 8.8 mg/dL (8.5-10.1); Carbon Dioxide 24.8 meq/L (21.0-32.0); Chloride 110 meq/L (98-107); Glomerular Filtration Rate Greater Than 89 mL/min (>89); Glucose,Random 318 mg/dL (74-106); Potassium 3.4 meq/L (3.5-5.1); Sodium 141 meq/L (136-145)
--- NOTE | 2019-01-10 17:21 | P.PNIM ---
Subjective Interval history: Denies any deterioration since last night. Patient himself says he feels good. Is in a joking mood. Physical Exam Vital signs: Vital Signs 01/09/19 18:00 01/09/19 19:00 01/09/19 20:00 Temperature 98.1 F Pulse Rate 101 H 98 H 86 Respiratory Rate 17 Blood Pressure 153/98 H Pulse Oximetry 95 01/09/19 21:00 01/09/19 22:00 01/09/19 23:00 Temperature Pulse Rate 98 H 80 78 Respiratory Rate Blood Pressure Pulse Oximetry 01/10/19 00:00 01/10/19 01:00 01/10/19 02:00 Temperature 97.9 F Pulse Rate 67 85 73 Respiratory Rate 17 Blood Pressure 148/94 H Pulse Oximetry 98 01/10/19 03:00 01/10/19 04:00 01/10/19 05:00 Temperature 98 F Pulse Rate 80 91 H 83 Respiratory Rate 16 Blood Pressure 147/92 H Pulse Oximetry 97 01/10/19 06:00 01/10/19 07:00 01/10/19 07:55 Temperature 98.5 F Pulse Rate 83 89 83 Respiratory Rate 16 Blood Pressure 155/96 H Pulse Oximetry 97 Intake & Output 01/09/19 01/10/19 01/10/19 18:59 06:59 18:59 Intake Total 1385 / 1385 1255 / 1255 1000 / 1000 Output Total 1100 / 1100 1300 / 1300 Balance 285 / 285 -45 / -45 1000 / 1000 Weight 103.9 kg Intake: IV 665 / 665 1015 / 1015 1000 / 1000 NS Inj 1,000 ML @ 100 mls/hr IV 500 / 500 1000 / 1000 .CONT .Q10H ERICA Rx#:[id number] Levaquin 750 mg Premix Inj 150 150 / 150 ML @ 100 mls/hr IV.SIG Q24H ERICA Rx#:[id number] Vancomycin Inj 1,500 MG In NS 515 / 515 515 / 515 Inj 500 ML @ 257.5 mls/hr IV. SIG Q12H ERICA Rx#:[id number] Oral 720 / 720 240 / 240 Output: Urine 1100 / 1100 Urine Amount (Catheter) 1300 / 1300 Indwelling Urethral Catheter 1300 / 1300 Other: Date of Last Bowel Movement 01/08/19 01/08/19 Narrative: Clear lungs bilaterally, unlabored breathing Heart sounds regular rate and rhythm, no murmurs No facial droop, no slurred speech, moves all 4 extremities Awake and alert, eating Oriented, intact insight Urinary Catheter Management Indwelling Urethral Catheter: Cath placed during this visit: yes Reason for continuing: Hourly intake/output Insertion date: 01/08/19 Insertion time: 00:15 Results Labs CBC & Chem 7: 01/09/19 06:11 01/10/19 14:20 Labs: Microbiology 01/07/19 23:15 Blood - Peripheral Aerobic Blood Culture - Final Staphylococcus coag negative 01/07/19 23:15 Blood - Peripheral Anaerobic Blood Culture - Final Staphylococcus coag negative 01/07/19 23:05 Blood - Peripheral Aerobic Blood Culture - Final Staphylococcus coag negative 01/07/19 23:05 Blood - Peripheral Anaerobic Blood Culture - Final Staphylococcus coag negative Viridans streptococcus grp 01/09/19 18:35 Blood - Peripheral Aerobic Blood Culture - Preliminary No growth in 1 day 01/09/19 18:35 Blood - Peripheral Anaerobic Blood Culture - Preliminary No growth in 1 day 01/09/19 18:40 Blood - Peripheral Aerobic Blood Culture - Preliminary No growth in 1 day 01/09/19 18:40 Blood - Peripheral Anaerobic Blood Culture - Preliminary No growth in 1 day Assessment and Plan (1) Paranoid schizophrenia: Code(s): F20.0 - Paranoid schizophrenia Status: Acute Plan 43-year-old white male admitted for altered mental status. Could have been due to bacteremia as his other workup including EEG and CT head were unremarkable. Encephalopathy has resolved. Staph coag negative bacteremia Unsure of source but due to gram-positive nature, continue vancomycin, appreciate ID input Repeat cultures pending Asymptomatic bradycardia -telemetry Schizophrenia Cleared from psychiatry standpoint, continue home medicines that have been clarified by psychiatry Diabetes mellitus Patient's family does not know his home insulin regimen Hyperglycemic on arrival Sliding-scale insulin Monitor blood glucose consider home medications once reconciled Urinary retention -Patient with history of "thickened urethra" that occasionally requires self catheterization -Francis in place Chronic hip fracture -Patient has refused repair by orthopedic surgery -says he ambulates at home well
[2019-01-10] MEDS: Mirtazapine 15 MG Tablet PO SCH (21:05)
[2019-01-11] MEDS ORDERED: Pharmacy Ordered Lab Info OTHER ONE ×2 (01:45→13:45)
[2019-01-11] MEDS: Sod Chloride 0.9% Inj 1,000 ML IV.CONT SCH ×2 (01:55→09:46)
[2019-01-11] MEDS: Vancomycin Inj 1,500 MG in Sodium Chlor 0.9% Inj 500 ML IV.SIG SCH ×2 (01:55→14:17)
[2019-01-11] MEDS: Insulin NovoLOG Aspart Correctional Sugar Inj SQ SCH ×3 (02:30→13:02)
[2019-01-11] MEDS: Senna/Docusate Sodium 8.6/50 MG Tablet PO SCH (09:46)
--- NOTE | 2019-01-11 11:35 | P.PNID ---
Subjective Remarks: Patient is in no acute distress. Alert and fluently conversant. No pressured speech. He appears calm. No complaints. Sitting in bedside recliner. Afebrile. Denies chills. Repeat blood culture no growth in 2 days. This is a 43-year-old white male who was brought to the emergency department because of altered mental status. The patient was noted to have difficulties walking and was stumbling to walk and was urinating on himself. He was noted to have severely altered mental status with slurred speech and difficulty answering questions appropriately when he presented to the emergency department. He has history of schizophrenia. It was felt that his symptoms were not similar to his usual presentation of schizophrenia. Past Medical History: PAST MEDICAL HISTORY: Diabetes mellitus, gastroesophageal reflux disease, urinary retention, hip fracture, schizophrenia. Allergies/Adverse Reactions: Allergies iodine Allergy (Severe, Unverified 07/11/17 19:24) RASH lidocaine Allergy (Severe, Unverified 07/11/17 19:24) UNKNOWN penicillin G Allergy (Severe, Unverified 07/11/17 19:24) prednisone Allergy (Severe, Unverified 07/11/17 19:24) UNKNOWN sodium iodide Allergy (Severe, Unverified 07/11/17 19:24) RASH sodium iodide Allergy (Severe, Unverified 07/11/17 19:24) RASH Objective Vital Signs 01/10/19 12:00 01/10/19 13:00 01/10/19 14:00 Temperature 98 F Pulse Rate 92 H 92 H 96 H Respiratory Rate 18 Blood Pressure 152/94 H Pulse Oximetry 98 01/10/19 15:00 01/10/19 16:00 01/10/19 18:00 Temperature 98.2 F Pulse Rate 90 82 80 Respiratory Rate 16 Blood Pressure 150/92 H Pulse Oximetry 97 01/10/19 19:00 01/10/19 20:00 01/10/19 21:00 Temperature 98 F Pulse Rate 67 70 76 Respiratory Rate 18 Blood Pressure 154/96 H Pulse Oximetry 99 01/10/19 22:00 01/10/19 23:00 01/11/19 00:00 Temperature 97.4 F L Pulse Rate 82 85 73 Respiratory Rate 18 Blood Pressure 139/95 H Pulse Oximetry 98 01/11/19 01:00 01/11/19 02:00 01/11/19 03:00 Temperature Pulse Rate 70 94 H 73 Respiratory Rate Blood Pressure Pulse Oximetry 01/11/19 04:00 01/11/19 05:00 01/11/19 06:00 Temperature 97.3 F L Pulse Rate 83 67 73 Respiratory Rate 20 Blood Pressure 141/94 H Pulse Oximetry 96 01/11/19 07:00 01/11/19 07:53 01/11/19 08:00 Temperature 98.5 F Pulse Rate 89 82 88 Respiratory Rate 16 Blood Pressure 143/91 H Pulse Oximetry 100 01/11/19 09:00 01/11/19 10:00 Temperature Pulse Rate 92 H 86 Respiratory Rate Blood Pressure Pulse Oximetry Intake & Output 01/10/19 01/11/19 01/11/19 18:59 06:59 18:59 Intake Total 1665 / 1665 3195 / 3195 Output Total 900 / 900 2750 / 2750 Balance 765 / 765 445 / 445 Weight 105.9 kg Intake: IV 1665 / 1665 1515 / 1515 NS Inj 1,000 ML @ 100 mls/hr IV 1000 / 1000 1000 / 1000 .CONT .Q10H ERICA Rx#:[id number] Levaquin 750 mg Premix Inj 150 150 / 150 ML @ 100 mls/hr IV.SIG Q24H ERICA Rx#:[id number] Vancomycin Inj 1,500 MG In NS 515 / 515 515 / 515 Inj 500 ML @ 257.5 mls/hr IV. SIG Q12H ERICA Rx#:[id number] Oral 1680 / 1680 Output: Urine 400 / 400 2750 / 2750 Urine Amount (Catheter) 500 / 500 Indwelling Urethral Catheter 500 / 500 Other: Date of Last Bowel Movement 01/11/19 01/11/19 # Bowel Movements 1 01/09/19 18:35 Blood - Peripheral Aerobic Blood Culture - Preliminary No growth in 2 days 01/09/19 18:35 Blood - Peripheral Anaerobic Blood Culture - Preliminary No growth in 2 days 01/09/19 18:40 Blood - Peripheral Aerobic Blood Culture - Preliminary No growth in 2 days 01/09/19 18:40 Blood - Peripheral Anaerobic Blood Culture - Preliminary No growth in 2 days 01/07/19 23:15 Blood - Peripheral Aerobic Blood Culture - Final Staphylococcus coag negative 01/07/19 23:15 Blood - Peripheral Anaerobic Blood Culture - Final Staphylococcus coag negative 01/07/19 23:05 Blood - Peripheral Aerobic Blood Culture - Final Staphylococcus coag negative 01/07/19 23:05 Blood - Peripheral Anaerobic Blood Culture - Final Staphylococcus coag negative Viridans streptococcus grp Lab - Chemistry Results 01/09/19 01/09/19 01/09/19 11:31 16:54 21:10 Sodium Potassium Chloride Carbon Dioxide Anion Gap BUN Creatinine Estimated GFR POC Glucose 199 H 222 H 232 H Random Glucose Calcium 01/10/19 01/10/19 01/10/19 02:14 06:17 07:52 Sodium Potassium Chloride Carbon Dioxide Anion Gap BUN Creatinine 0.73 Estimated GFR Greater than 89 POC Glucose 187 H 224 H Random Glucose Calcium 01/10/19 01/10/19 01/10/19 11:44 14:20 17:18 Sodium 141 Potassium 3.4 L Chloride 110 H Carbon Dioxide 24.8 Anion Gap 6 BUN 11 Creatinine 0.87 Estimated GFR Greater than 89 POC Glucose 237 H 246 H Random Glucose 318 H Calcium 8.8 01/10/19 01/11/19 01/11/19 21:00 02:26 07:43 Sodium Potassium Chloride Carbon Dioxide Anion Gap BUN Creatinine Estimated GFR POC Glucose 197 H 263 H 272 H Random Glucose Calcium Imaging: ITS Impressions Chest X-Ray 01/07/19 20:57 CONCLUSION: No acute cardiopulmonary disease identified. Head CT 01/07/19 20:57 CONCLUSION: 1. Negative CT Head non contrast. . Physical Exam: PHYSICAL EXAMINATION: GENERAL: Patient is awake. Alert. No acute distress. HEENT: Head is atraumatic. Extraocular movements grossly intact. Pupils reactive to light. No icterus. Oropharynx edentulous. No visible lesions. No thrush. NECK: Supple without adenopathy. LUNGS: Clear to auscultation. HEART: Regular S1, S2, without murmurs, rubs or gallops. ABDOMEN: Bowel sounds present. Soft, no tenderness appreciated. No masses palpable. EXTREMITIES: No clubbing, cyanosis or edema. SKIN: No rash. NEUROLOGIC: Nonfocal. PSYCHIATRIC: Calm and cooperative. Pleasant. Assessment and Plan - Plan IMPRESSION: 1. Gram-positive bacteremia, with different morphologies of staph coagulase negative in 1 bottle has viridans strep. The patient has no known history of intravenous drug use. He denies using IV drugs. Most likely contaminant. 2. Leukocytosis. Improved. 3. The patient was admitted with altered mental status. He has history of schizophrenia and has a flat affect currently. Unclear whether the altered mental status was because of sepsis. Mental status is improved. 4. Diabetes mellitus. RECOMMENDATIONS: Okay to stop the vancomycin from my standpoint. I think the blood cultures are contaminant. Okay for discharge from ID standpoint. Discussed with Dr. Rae.
--- NOTE | 2019-01-11 15:56 | MR ---
EXAM DATE: 01/11/2019 3:52 PM EST AGE/SEX: 43 years / Male INDICATIONS: Confusion. CLINICAL DATA: This is the patient's initial encounter. Patient reports that signs and symptoms have been present for 1 day and indicates a pain score of 0/10. MEDICAL/SURGICAL HISTORY: Diabetes mellitus type II. Inguinal hernia repair. ORIF foot. [place] [facility] [place]. . TECHNIQUE: Multiplanar, multisequence examination of the brain was performed without contrast. FINDINGS: Cerebrum: The ventricles are normal for age. No evidence of midline shift, mass lesion, hemorrhage or acute infarction. No extraaxial fluid collections are seen. The pituitary gland and suprasellar cistern are normal in configuration. White Matter: No significant signal abnormalities are seen in the white matter. Posterior Fossa: The cerebellum and brainstem are intact. The 4th ventricle is midline. The cerebel lopontine angle is unremarkable. The cerebellar tonsils are normal in position. Diffusion Imaging: No focal areas of restricted diffusion are seen. No evidence of acute infarction . Extracranial: The visualized portions of the orbits and paranasal sinuses are unremarkable. CONCLUSION: 1. Unremarkable MRI of the brain. Electronically signed by: Nino Fang MD Board Certified Radiologist 01/11/2019 3:55 PM EST
[2019-01-12] MEDS ORDERED: Vancomycin Inj 2,000 MG in Sodium Chlor 0.9% Inj 500 ML IV.SIG SCH (02:00)
--- NOTE | 2019-01-12 08:45 | P.DS ---
DS: Providers Date of admission: 01/07/19 23:49 Primary care physician: UNKNOWN Consults: 01/07/19 23:30 HUB Only Consult Order Routine Consulting Provider: Romeo Walters 01/08/19 17:22 Consult to Psychiatry Routine Consulting Provider: Chepe Hanley Reason for Consultation: complete disorientation w/ hx of schizophrenia Notified:: Office Spoke with:: Emily Date Notified:: 01/08/19 Time Notified:: 17:31 Ordering Provider: ELISABETH 01/09/19 11:58 Consult to Infectious Diseases Routine Consulting Provider: Elliot Parisi Reason for Consultation: g+ bacteremia Notified:: Service Spoke with:: rachele Date Notified:: 01/09/19 Time Notified:: 12:09 Ordering Provider: ELISABETH DS: Diagnosis Discharge Diagnosis (1) Paranoid schizophrenia: Status: Acute DS: Summary Patient was admitted for encephalopathy and behavioral disturbance, head CT was neg for acute findings. EEG was nonspecific for diffuse encephalopathy. With supportive care the patient's mental status returned to baseline. Antibiotics were started for 2 out of 2 positive blood cultures which were positive initially for polymorphous staph as well as strep viridans, ID was consulted, repeat cultures are negative - abx were discontinued. Patient had head MRI which was negative for acute findings. Patient did not have any witnessed seizure activity at all in the hospital. This concluded that the patient may very well have had a seizure at home. He did not require any antiepileptic loading in the ED or in the hospital. Psychiatry had been consulted and helped verify and also modify his psychotropic medications. Patient was advised to refrain from operating heavy machinery or driving or being present at unprotected heights. He was informed that should any similar symptoms happen again to return to the ED, but it is imperative that he follows up with neurology outpatient. Patient has met maximal benefit from hospitalization and is clinically stable for discharge. Time Spent with Patient Total time spent providing and/or coordinating discharge services: Exam Narrative Exam Narrative: Awake alert, no acute distress No facial droop, no slurred speech Extraocular motions intact Oriented x3, has intact insight Grossly moves all 4 extremities, ambulates well Heart sounds regular rate and rhythm Clear lungs bilaterally, unlabored breathing Normocephalic, atraumatic Results Labs on day of discharge: Labs from last 24 hours 0201/11/19 01/11/19 13:26 13:26 11:54 POC Glucose 253 H Vitamin B12 359 Vancomycin Trough 11.8 H Ur Buprenorphine Ur Heroin Screen Urine Oxycodone Ur Methadone U Hydromorphone Confirm Urine Fentanyl Urine Gabapentin Ur Phencyclidine (PCP) Ur MDMA & Metabolites 01/08/19 00:20 POC Glucose Vitamin B12 Vancomycin Trough Ur Buprenorphine Negative Ur Heroin Screen Negative Urine Oxycodone Negative Ur Methadone Negative U Hydromorphone Confirm Negative Urine Fentanyl Negative Urine Gabapentin Negative Ur Phencyclidine (PCP) Negative Ur MDMA & Metabolites Negative Preliminary micro results at discharge 01/09/19 18:35 Aerobic Blood Culture - Preliminary Blood - Peripheral No growth in 2 days Anaerobic Blood Culture - Preliminary No growth in 2 days 01/09/19 18:40 Aerobic Blood Culture - Preliminary Blood - Peripheral No growth in 2 days Anaerobic Blood Culture - Preliminary No growth in 2 days Impressions ITS Impressions Chest X-Ray 01/07/19 20:57 CONCLUSION: No acute cardiopulmonary disease identified. Head CT 01/07/19 20:57 CONCLUSION: 1. Negative CT Head non contrast. . Head MRI 01/11/19 12:51 CONCLUSION: 1. Unremarkable MRI of the brain. Discharge Plan Discharge Disposition Patient Disposition: Discharge Home Discharge Order Discharge Orders: Discharge Order (Routine); Ordered 01/11/19 Ordered By: Ralph Rae Physicians Team ED Provider: Carmel Ibarra ED Midlevel Provider: Denny Morales Primary Care Provider: UNKNOWN, Attending Provider: Ralph Rae Other Providers: Romeo Walters ; Chepe Hanley ; Elliot Parisi Rxs /Orders / Referrals /Forms Prescriptions: Continue hydroxyzine pamoate 50 mg Capsule 50 mg PO HS RF: 0 mirtazapine 30 mg Tablet 30 mg PO HS RF: 0 haloperidol decanoate 50 mg/mL Solution 150 mg IM Q4W RF: 0 insulin aspart U-100 [Novolog U-100 Insulin aspart] 100 unit/mL Solution See Label Instructions .ROUTE .COMPLEX RF: 0 insulin glargine [Lantus U-100 Insulin] 100 unit/mL Solution 50 unit SUBCUT ONCE HS RF: 0 Changed perphenazine 4 mg Tablet 4 mg PO HS Qty: 30 RF: 0 Discontinued perphenazine 8 mg Tablet 8 mg PO HS RF: 0 Referrals: Diego Mahoney MD, PhD [Physician] - See Instructions ( Please call the physician's office to book the appointment to be seen within [7 days of discharge].) UNKNOWN, [Primary Care Provider] - See Instructions Discharge Instructions Patient Printed Instructions: Altered Mental Status (GEN), New-Onset Seizure in Adults (DC) Additional Instructions: No driving Follow up with Dr. Mahoney, neurology. If symptoms return, come back to Emergency Room. Status ED Status: Left Department Discharge Information Discharge Date/Time: 01/11/19 18:16
[2019-01-13] MEDS ORDERED: Pharmacy Ordered Lab Info OTHER ONE (13:45)
== END 2019-01-11 18:16 | disposition home or self-care (01) | DRG 71 ==
LOC: NEDA 20:27 → NEPE 20:27 → HCIS 01-08 03:11
PROVIDERS: ADMIT Hospitalist; ATTEND Hospitalist
CPT/HCPCS: 70450; 70551; 71010; 71045; 80048; 80053; 80101; 80202; 80301; 80307; 81001; 82140; 82550; 82565; 82607; 82803; 82805; 82948; 82962; 83520; 83605; 83735; 83880; 84443; 84484; 85025; 85610; 86403; 87040; 87149; 87205; 87389; 90760; 92526; 92610; 93005; 95819; 96360; 97110; 97162; 99285; G0195; G0431; G0479; G0481; G0483; J1815; J1956; J2310; J3370; J7030; J7040; P9612; Q0175